=== PATIENT | female | born 1960 | race Caucasian/White ===

== ENCOUNTER → 2017-11-15 | Outpatient (CLI) | payer OTHER ==
[~2017-11-15] MED LIST: ATORVASTATIN PO; HYDROCODON-ACE1 EAC9 PO; LISINOPRIL PO; METOPROLOL TAR100 MG PO; NAPROXEN PO; ROPINIROLE HCL0.5 MG PO; TIZANIDINE HCL4 M1 PO
--- NOTE | 2017-11-15 14:19 | Diagnostic Imaging Report ---
PROCEDURE:X-RAY ABDOMEN - KUB COMPARISON:None. INDICATIONS:RENAL STONE FINDINGS: There is a non-obstructed bowel-gas pattern. There are no calcifications projected over the renal shadows, expected course of the ureters or bladder. There are no acute osseous abnormalities. Catheter projects over the lower lumbar spine and right mid abdomen. Phleboliths are present in the pelvis. The lung bases are clear. CONCLUSION: No acute radiographic abnormality. Dictated by: Fawad Subramanian M.D. on 11/15/2017 at 14:27 Electronically approved by: Fawad Subramanian M.D. on 11/15/2017 at 14:27
== END ==
LOC: RAD 13:28
PROVIDERS: ATTEND Urology
DX: N20.0 Calculus of kidney (principal)
CPT/HCPCS: 74000

== ENCOUNTER 2019-06-20 14:12 | Emergency (ER) | payer OTHER ==
[~2019-06-20] VITALS: Ht 167.6 cm; Wt 68.6 kg
--- OUTSIDE RECORDS SUMMARY | 2019-06-20 14:15 | XMS REPORT | Clinical Summary ---
Author Author [facility] Organization [facility] Address Unknown Phone Unavailable Care Team Providers Care Postie Name Role Phone Syd Pritchett MD PCP Allergies No Known Allergies Medications End Date Status Medication Sig Dispensed Refills Start Date Active rOPINIRole (REQUIP) 5 MG Take 5 mg by 0 tablet mouth 2 (two) times a day. Active gabapentin (NEURONTIN) Take 300 mg 0 300 mg capsule by mouth 3 (three) times a day. Active cyanocobalamin 1,000 Inject 1,000 0 mcg/mL injection mcg into the shoulder, thigh, or buttocks every 30 (thirty) days. 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 Spinal headache 04/16/2018 Back pain 04/05/2018 Lumbar pain 01/26/2018 Encounters Care Team Description Date Type Specialty Yoel Skaggs MD Acute right-sided low back pain with bilateral sciatica 09/24/2018 Hospital Radiology Encounter Syd Pritchett MD Laboratory procedure 09/24/2018 Hospital Radiology Encounter Horace Saravia MD Kidney stones 09/24/2018 Hospital Radiology Encounter Syd Pritchett MD Laboratory procedure (Primary Dx) 09/24/2018 Transcribe Access Orders Horace Saravia MD Kidney stones (Primary Dx) 09/24/2018 Transcribe Access Orders Yoel Skaggs MD Acute right-sided low back pain with bilateral sciatica (Primary Dx) 09/20/2018 Transcribe Neurosurgery Orders after 06/19/2018 Family History Medical History Relation Name Comments SIDS Brother Relation Name Status Comments Brother Father Mother Social History Date Tobacco Use Types Packs/Day Years Used Never Smoker Smokeless Tobacco: Never Used Alcohol Use Drinks/Week oz/Week Comments Yes occasssionally Sex Assigned at Date Recorded Not on file Industry Job Start Date Occupation Not on file Not on file Not on file Travel End Travel History Travel Start No recent travel history available. Last Filed Vital Signs Time Taken Vital Sign Reading - Blood Pressure - - Pulse - - Temperature - - Respiratory Rate - - Oxygen Saturation - - Inhaled Oxygen - Concentration 09/24/2018 6:37 PM [employer] Weight 76.7 kg (169 lb) 09/24/2018 6:37 PM [employer] Height 170.2 cm (5' 7") 09/24/2018 6:37 PM [employer] Body Mass Index 26.47 Plan of Treatment Health Maintenance Due Date Last Done Comments BREAST CANCER SCREENING 2012 COLONOSCOPY SCREENING 2012 SHINGLES VACCINES (#1) 2012 INFLUENZA VACCINE 06/06/2019 Implants Device Identifier Shelf Expiration Date Model / Serial / Lot Implanted Type Area Manufactur er 07/06/2019 [id number] / / [id number] System Spine Selnt For Dural Selng Cardiovasc N/A: N/A [employer] Exact 5ml Duraseal - [id number] Implanted: 04/26/2018 (Quantity not Implants E NEURO on file) Procedures Comments Procedure Name Priority Date/Time Associated Diagnosis MRI LUMBAR SPINE W WO Routine 09/24/2018 Acute right-sided low CONTRAST 7:06 PM [employer] back pain with bilateral sciatica XR CHEST 2 VW Routine 09/24/2018 Laboratory procedure 6:14 PM [employer] XR KUB KIDNEY URETER Routine 09/24/2018 Kidney stones BLADDER 6:13 PM [employer] after 06/19/2018 Results * MRI Lumbar Spine W Wo Contrast (09/24/2018 7:06 PM [employer]) Specimen Narrative Performed At [facility] EXAMINATION: MRI LUMBAR SPINE W WO CONTRAST CLINICAL HISTORY: M54.42 Lumbago with sciaticaleft side, M54.41 Lumbago with sciaticaright side, Acute right-sided low back pain COMPARISON:Lumbar myelogram 04/26/2018. TECHNIQUE: Multiplanar multisequence nonenhanced and contrast enhanced MRI examination was performed of the lumbar spine. FINDINGS: There are 5 non-rib bearing lumbar type vertebrae, the lowest labeled L5 in this report as identified by the lumbosacral angle and iliolumbar ligaments. There are postsurgical changes compatible with decompressive laminectomies L2-L3. The alignment is within normal limits. No subluxation. There is significant wedge like Modic type I marrow edema pattern degenerative changes with associated enhancement involving the adjacent endplates of the anterior L5-S1 intervertebral disc and T11-T12 intervertebral disc. Vertebral body heights are preserved. No paraspinal collections identified. Conus medullaris terminates appropriately at the L1 level. No abnormal T2 hyperintense intramedullary signal or enhancement identified. The cauda equina nerve roots are symmetric and normal in appearance. No abnormal thickening, clumping or enhancement identified. Evaluation of the visualized soft tissues demonstrates no mass, adenopathy or aneurysm. No hydronephrosis. Axial images through the disc spaces demonstrate the following: L1-L2: No significant posterior disc disease, spinal canal, subarticular zone, or neural foraminal stenosis. L2-L3: Spinal canal is decompressed. No significant subarticular zone, or neural foraminal stenosis. L3-L4: No significant posterior disc disease, spinal canal, subarticular zone, or neural foraminal stenosis. L4-L5: No significant posterior disc disease, spinal canal, subarticular zone, or neural foraminal stenosis. L5-S1: Complete intervertebral disc height loss with large anterior disc extrusion on background circumferential disc bulge, image 6 of series 8. There is marked right neural foraminal stenosis with contact of the exiting L5 nerve root on the right, image 3 of series 2. There is mild to moderate left neural foraminal narrowing as well. Evaluation of other visualized levels demonstrates no significant posterior disc disease, spinal canal, subarticular zone, or neural foraminal stenosis. IMPRESSION: 1.Marked right and mild to moderate left neural foraminal stenosis at L5-S1 secondary to intervertebral disc height loss and bulging disc material as detailed above. 2.Postsurgical changes compatible with decompressive laminectomy at L2-L3. No residual spinal canal or neural foraminal stenosis. [facility]-[id number] Procedure Note [facility], Radiology Results - 09/24/2018 8:08 PM [employer] EXAMINATION: MRI LUMBAR SPINE W WO CONTRAST CLINICAL HISTORY: M54.42 Lumbago with sciatica left side, M54.41 Lumbago with sciatica right side, Acute right-sided low back pain COMPARISON: Lumbar myelogram 04/26/2018. TECHNIQUE: Multiplanar multisequence nonenhanced and contrast enhanced MRI examination was performed of the lumbar spine. FINDINGS: There are 5 non-rib bearing lumbar type vertebrae, the lowest labeled L5 in this report as identified by the lumbosacral angle and iliolumbar ligaments. There are postsurgical changes compatible with decompressive laminectomies L2-L3. The alignment is within normal limits. No subluxation. There is significant wedge like Modic type I marrow edema pattern degenerative changes with associated enhancement involving the adjacent endplates of the anterior L5-S1 intervertebral disc and T11-T12 intervertebral disc. Vertebral body heights are preserved. No paraspinal collections identified. Conus medullaris terminates appropriately at the L1 level. No abnormal T2 hyperintense intramedullary signal or enhancement identified. The cauda equina nerve roots are symmetric and normal in appearance. No abnormal thickening, clumping or enhancement identified. Evaluation of the visualized soft tissues demonstrates no mass, adenopathy or aneurysm. No hydronephrosis. Axial images through the disc spaces demonstrate the following: L1-L2: No significant posterior disc disease, spinal canal, subarticular zone, or neural foraminal stenosis. L2-L3: Spinal canal is decompressed. No significant subarticular zone, or neural foraminal stenosis. L3-L4: No significant posterior disc disease, spinal canal, subarticular zone, or neural foraminal stenosis. L4-L5: No significant posterior disc disease, spinal canal, subarticular zone, or neural foraminal stenosis. L5-S1: Complete intervertebral disc height loss with large anterior disc extrusion on background circumferential disc bulge, image 6 of series 8. There is marked right neural foraminal stenosis with contact of the exiting L5 nerve root on the right, image 3 of series 2. There is mild to moderate left neural foraminal narrowing as well. Evaluation of other visualized levels demonstrates no significant posterior disc disease, spinal canal, subarticular zone, or neural foraminal stenosis. IMPRESSION: 1. Marked right and mild to moderate left neural foraminal stenosis at L5-S1 secondary to intervertebral disc height loss and bulging disc material as detailed above. 2. Postsurgical changes compatible with decompressive laminectomy at L2-L3. No residual spinal canal or neural foraminal stenosis. [facility]-[id number] [facility] Organization Address City/State/Zipcode Phone Number [facility] [address] [place] [address] * XR Chest 2 Vw (09/24/2018 6:14 PM [employer]) Specimen Narrative Performed At EXAMINATION:XR CHEST 2 VW [facility] CLINICAL HISTORY:Z01.89 Encounter for other specified special examinations, Z COMPARISON:March 29, 2018 IMPRESSION: 1. The heart and pulmonary vasculature are within normal limits. 2. No infiltrate or effusion is demonstrated. 3. There is no acute osseous pathology. CONCLUSION: NO RADIOGRAPHIC EVIDENCE OF ACUTE CARDIOPULMONARY ABNORMALITY. [place] [facility]-[id number] Procedure Note Interface, Radiology Results Incoming - 09/24/2018 6:22 PM [employer] EXAMINATION: XR CHEST 2 VW CLINICAL HISTORY: Z01.89 Encounter for other specified special examinations, Z COMPARISON: March 29, 2018 IMPRESSION: 1. The heart and pulmonary vasculature are within normal limits. 2. No infiltrate or effusion is demonstrated. 3. There is no acute osseous pathology. CONCLUSION: NO RADIOGRAPHIC EVIDENCE OF ACUTE CARDIOPULMONARY ABNORMALITY. [place] [facility]-[id number] Performing Organization Address City/State/Zipcode Phone Number [facility] [address] [place] [address] * XR Kub Kidney Ureter Bladder (09/24/2018 6:13 PM [employer]) Specimen Narrative Performed At EXAMINATION:XR KUB KIDNEY URETER BLADDER [facility] CLINICAL HISTORY:N20.0 Calculus of kidney, N20.0 COMPARISON:None. IMPRESSION: 1. No suspicious calcification overlies the renal shadows or expected course of the ureters. Calcifications within the pelvis are similar to the December 01 CT scan and were shown to represent phleboliths. 2. There is no evidence of bowel obstruction or perforation. 3. Fragments of a TIMBER REPAIRER shunt are grossly stable. The visualized lung bases are clear. [facility]-[id number] Procedure Note Interface, Radiology Results Incoming - 09/24/2018 6:37 PM [employer] EXAMINATION: XR KUB KIDNEY URETER BLADDER CLINICAL HISTORY: N20.0 Calculus of kidney, N20.0 COMPARISON: None. IMPRESSION: 1. No suspicious calcification overlies the renal shadows or expected course of the ureters. Calcifications within the pelvis are similar to the December 01 CT scan and were shown to represent phleboliths. 2. There is no evidence of bowel obstruction or perforation. 3. Fragments of a TIMBER REPAIRER shunt are grossly stable. The visualized lung bases are clear. [facility]-[id number] Performing Organization Address City/State/Zipcode Phone Number [facility] [address] [place] [address] after 06/19/2018 Insurance Type Payer Benefit Subscriber ID Effective Phone Address Plan / Dates Group PPO [facility] UNITED xxxxxxxxxxxx 2012-P INTEGRATED resent SVS HMO/PPO [facility] GEHA/UNITE xxxxxxxxxxxx 2012-P DHEALTHCAR resent E Advance Directives Patient has advance care planning documents on file. For more information, ruth hamilton contact: David Aiken [address] [place] [address]
--- OUTSIDE RECORDS SUMMARY | 2019-06-20 14:16 | XMS REPORT | Summary of Care ---
Author Author [facility] Organization [facility] Address Unknown Phone Unavailable Encounter RAOUL Hough(QIAN) [id number] Date(s): 10/31/17 - 11/01/17 [facility] [address] [employer] provided by [facility] [employer] [facility] [place] [address]- Discharge Diagnosis: Acute constipation Discharge Disposition: Home or Self Care Attending Physician: Deisy Kumar MD Vital Signs 1 2 3 Most recent to oldest [Reference Range]: 98 DegF (11/01/17 4:40 AM) 97.3 DegF (10/31/17 11:21 PM) 97.8 DegF (10/31/17 6:23 PM) Temperature Oral [96.4-99.1 DegF] 128/79 mmHg (11/01/17 4:40 AM) 140/86 mmHg (10/31/17 11:21 PM) 137/85 mmHg (10/31/17 6:23 PM) Blood Pressure [90-140/60-90 mmHg] 20 BRMIN (11/01/17 4:40 AM) 20 BRMIN (10/31/17 11:21 PM) 18 BRMIN (10/31/17 6:23 PM) Respiratory Rate [14-20 BRMIN] 70 bpm (10/31/17 11:21 PM) 56 bpm *LOW* (10/31/17 6:23 PM) Peripheral Pulse Rate [60-100 bpm] 90.909 kg (10/31/17 6:23 PM) Weight Problem List Condition Effective Dates Status Health Status Informant Hypertension(Confirm Resolved ed) Allergies, Adverse Reactions, Alerts Substance Reaction Severity Status NKDA Active Medications docusate sodium 50 mg oral capsule 50 mg=1 cap, PO, BID, PRN Constipation, # 180 cap, 0 Refill(s) Start Date: 11/01/17 Status: Ordered docusate-senna 50 mg-8.6 mg oral tablet 2 tab, Route: PO, Drug Form: TAB, Dosing Weight 90.909, kg, Bedtime, Start date: 11/01/17 21:00:00 DIRECTOR OF ONLINE EDUCATION, Duration: 30 day, Stop date: 11/30/17 21:00:00 DIRECTOR OF ONLINE EDUCATION Notes: (Same as Sensuzan-S) Equiv. to Katarzyna-Colace. Start Date: 11/01/17 Stop Date: 11/01/17 Status: Canceled docusate-senna 50 mg-8.6 mg oral tablet 2 tab, Route: PO, Drug Form: TAB, Dosing Weight 90.909, kg, ONCE, Start date: 4:03:00 DIRECTOR OF ONLINE EDUCATION, Stop date: 11/01/17 4:03:00 DIRECTOR OF ONLINE EDUCATION Notes: (Same as Sensuzan-S) Equiv. to Katarzyna-Colace. Start Date: 11/01/17 Stop Date: 11/01/17 Status: Completed Fleet Enema 133 mL, Route: PA, Drug Form: SOLN, Dosing Weight 90.909, kg, ONCE, Start date: 11/01/17 4:16:00 DIRECTOR OF ONLINE EDUCATION, Stop date: 11/01/17 4:16:00 DIRECTOR OF ONLINE EDUCATION, For Constipation > 12 years, Pediatric Dosing Start Date: 11/01/17 Stop Date: 11/01/17 Status: Completed Keflex 500 mg oral capsule 500 mg=1 cap, PO, QID, X 7 day, # 28 cap, 0 Refill(s) Start Date: 11/01/17 Stop Date: 11/08/17 Status: Ordered MiraLax oral powder for reconstitution 17 gm, PO, Daily, X 31 day, # 527 gm, 0 Refill(s) Start Date: 11/01/17 Stop Date: 12/02/17 Status: Ordered Constantine 10/325 oral tablet 1 tab, Route: PO, Drug Form: TAB, Dosing Weight 90.909, kg, ONCE, STAT, Start da te: 11/01/17 5:08:00 DIRECTOR OF ONLINE EDUCATION, Stop date: 11/01/17 5:08:00 DIRECTOR OF ONLINE EDUCATION Notes: Do not exceed 4gm/day of acetaminophen. (Same as: Constantine 325/10) Start Date: 11/01/17 Stop Date: 11/01/17 Status: Ordered Constantine 10/325 oral tablet 1 tab, Route: PO, Drug Form: TAB, Dosing Weight 90.909, kg, ONCE, STAT, Start da te: 11/01/17 3:57:00 DIRECTOR OF ONLINE EDUCATION, Stop date: 11/01/17 3:57:00 DIRECTOR OF ONLINE EDUCATION Notes: Do not exceed 4gm/day of acetaminophen. (Same as: Constantine 325/10) Start Date: 11/01/17 Stop Date: 11/01/17 Status: Completed senna 25 mg oral tablet 50 mg=2 tab, PO, BID, PRN for constipation, X 25 day, # 100 tab, 0 Refill(s) Start Date: 11/01/17 Stop Date: 11/26/17 Status: Ordered Zofran ODT 4 mg, 1 tab, Route: PO, Drug form: TABDIS, ONCE, Dosing Weight 90.909, kg, Prior ity: STAT, Start date: 11/01/17 5:08:00 DIRECTOR OF ONLINE EDUCATION, Stop date: 11/01/17 5:08:00 DIRECTOR OF ONLINE EDUCATION Notes: (Same as: Zofran ODT) Start Date: 11/01/17 Stop Date: 11/01/17 Status: Ordered Zofran ODT 4 mg oral tablet, disintegrating 4 mg=1 tab, PO, BID, PRN Nausea and Vomiting, Dissolve tab under tongue, # 10 ta b, 0 Refill(s) Start Date: 11/01/17 Stop Date: 11/06/17 Status: Ordered Results ELECTROLYTES Most recent to 1 oldest [Reference Range]: Sodium Lvl [135-145 143 mEq/L mEq/L] (10/31/17 11:16 PM) Potassium Lvl 3.8 mEq/L [3.5-5.1 mEq/L] (10/31/17 11:16 PM) Chloride Lvl [95-109 105 mEq/L mEq/L] (10/31/17 11:16 PM) CO2 [24-32 mEq/L] 31 mEq/L (10/31/17 11:16 PM) AGAP [10.0-20.0 10.8 mEq/L mEq/L] (10/31/17 11:16 PM) CHEM PANEL Most recent to 1 oldest [Reference Range]: Creatinine Lvl 0.89 mg/dL [0.50-1.40 mg/dL] (10/31/17 11:16 PM) eGFR 73 mL/min/1.73m2 1 *NA* (10/31/17 11:16 PM) BUN [7-22 mg/dL] 18 mg/dL (10/31/17 11:16 PM) B/C Ratio [6-25] 20 (10/31/17 11:16 PM) Glucose Lvl [70-99 97 mg/dL mg/dL] (10/31/17 11:16 PM) Total Protein 7.7 g/dL [6.4-8.4 g/dL] (10/31/17 11:16 PM) Albumin Lvl [3.5-5.0 3.8 g/dL g/dL] (10/31/17 11:16 PM) Globulin [2.7-4.2 3.9 g/dL g/dL] (10/31/17 11:16 PM) A/G Ratio [0.7-1.6] 1.0 (10/31/17 11:16 PM) Calcium Lvl 9.0 mg/dL [8.5-10.5 mg/dL] (10/31/17 11:16 PM) ALT [0-65 unit/L] 27 unit/L (10/31/17 11:16 PM) AST [0-37 unit/L] 19 unit/L (10/31/17 11:16 PM) Alk Phos [39-136 91 unit/L unit/L] (10/31/17 11:16 PM) Bili Total [0.2-1.3 0.5 mg/dL mg/dL] (10/31/17 11:16 PM) Lipase Lvl [73-393 167 unit/L unit/L] (10/31/17 11:16 PM) 1Result Comment: The eGFR is calculated using the CKD-EPI formula. In most young, healthy individuals the eGFR will be >90 mL/min/1.73m2. The eGFR declines with age. An eGFR of 60-89 may be normal in some populations, particularly the elderly, for whom the CKD-EPI formula has not been extensively validated. Use of the eGFR is not recommended in the following populations: Individuals with unstable creatinine concentrations, including patients and those with serious co-morbid conditions. Patients with extremes in muscle mass or diet. The data above are obtained from the National Kidney Disease Education Program ( NKDEP) which additionally recommends that when the eGFR is used in patients with extremes of body mass index for purposes of drug dosing, the eGFR should be mul tiplied by the estimated BMI. URINE AND STOOL Most recent to 1 oldest [Reference Range]: UA Turbidity [Clear] Slight Cloudy (10/31/17 7:35 PM) UA Color [Yellow] Yellow *NA* (10/31/17 7:35 PM) UA pH [5.0-8.0] 6.0 (10/31/17 7:35 PM) UA Spec Grav 1.025 [<=1.030] (10/31/17 7:35 PM) UA Glucose Negative [Negative] (10/31/17 7:35 PM) UA Blood [Negative] Negative (10/31/17 7:35 PM) UA Ketones Negative [Negative] *NA* (10/31/17 7:35 PM) UA Protein Negative [Negative] (10/31/17 7:35 PM) UA Urobilinogen 0.2 EU/dL [0.1-1.0 EU/dL] (10/31/17 7:35 PM) UA Bili [Negative] Negative *NA* (10/31/17 7:35 PM) UA Leuk Est Small [Negative] *ABN* (10/31/17 7:35 PM) UA Nitrite Negative [Negative] (10/31/17 7:35 PM) UA WBC [None Seen 6-10 /HPF /HPF] *ABN* (10/31/17 7:35 PM) UA RBC [0-2 /HPF] 0-2 /HPF (10/31/17 7:35 PM) UA Bacteria [None None Seen Seen] (10/31/17 7:35 PM) UA Sq Epi [Few /LPF] Few /LPF (10/31/17 7:35 PM) UA Mucus [None Seen Moderate /LPF /LPF] *ABN* (10/31/17 7:35 PM) Micro? Performed (10/31/17 7:35 PM) HEMATOLOGY Most recent to 1 oldest [Reference Range]: WBC [3.7-10.4 K/CMM] 7.1 K/CMM (10/31/17 11:16 PM) RBC [4.20-5.40 4.42 M/CMM M/CMM] (10/31/17 11:16 PM) Hgb [12.0-16.0 g/dL] 13.7 g/dL (10/31/17 11:16 PM) Hct [36.0-48.0 %] 40.6 % (10/31/17:16 PM) MCV [80.0-98.0 fL] 91.9 fL (10/31/17 11:16 PM) MCH [27.0-31.0 pg] 31.0 pg (10/31/17:16 PM) MCHC [32.0-36.0 33.7 g/dL g/dL] (10/31/17 11:16 PM) RDW [11.5-14.5 %] 14.0 % (10/31/17 11:16 PM) Platelet [133-450 177 K/CMM K/CMM] (10/31/17:16 PM) MPV [7.4-10.4 fL] 10.4 fL (10/31/17 11:16 PM) Segs [45.0-75.0 %] 35.8 % *LOW* (10/31/17:16 PM) Lymphocytes 55.9 % [20.0-40.0 %] *HI* (10/31/17 11:16 PM) Monocytes [2.0-12.0 5.9 % %] (10/31/17 11:16 PM) Eosinophils [0.0-4.0 1.9 % %] (10/31/17 11:16 PM) Basophils [0.0-1.0 0.5 % %] (10/31/17 11:16 PM) Segs-Bands # 2.5 K/CMM [1.5-8.1 K/CMM] (10/31/17 11:16 PM) Lymphocytes # 3.9 K/CMM [1.0-5.5 K/CMM] (10/31/17 11:16 PM) Monocytes # [0.0-0.8 0.4 K/CMM K/CMM] (10/31/17 11:16 PM) Eosinophils # 0.1 K/CMM [0.0-0.5 K/CMM] (10/31/17 11:16 PM) Immunizations No data available for this section Procedures Procedure Date Related Diagnosis Body Site Bypass of stomach Carpal tunnel release Hysterectomy Removal - procedure1 Shunt construction2 1of rib 2fpor pseudocerebri Social History Social History Type Response Smoking Status Never smoker; Concerns about tobacco use in household: No; Exposure to Tobacco Smoke None; Cigarette Smoking Last 365 Days No; Reg Smoking Cessation Counseling No Assessment and Plan No data available for this section
--- OUTSIDE RECORDS SUMMARY | 2019-06-20 14:16 | XMS REPORT | Summary of Care ---
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) - Essential (primary) hypertension (Final) - Discharge Disposition: Home or Self Care Attending Physician: Eduardo Morfin MD Referring Physician: Eduardo Morfin MD Vital Signs 1 2 3 Most recent to oldest [Reference Range]: 170.18 cm (11/01/18 9:38 AM) Height 137/70 mmHg (11/02/18 2:29 PM) 119/58 mmHg (11/02/18 2:15 PM) 129/74 mmHg (11/02/18 2:00 PM) Blood Pressure [90-140/60-90 mmHg] 15 BRMIN (11/02/18 2:29 PM) 14 BRMIN (11/02/18 2:15 PM) 14 BRMIN (11/02/18 2:00 PM) Respiratory Rate [14-20 BRMIN] 48 bpm *LOW* (11/02/18 9:18 AM) Peripheral Pulse Rate [60-100 bpm] 75.455 kg (11/01/18 9:38 AM) Weight 26.05 m2 (11/01/18 9:38 AM) Body Mass Index Problem List Condition Effective Dates Status Health Status Informant CSF leak(Confirmed) Resolved Depression(Confirmed Active ) Hypertension(Confirm Active ed) Allergies, Adverse Reactions, Alerts No Known Medication Allergies Medications acetaminophen (ANES) Route: IV, Drug form: INJ, ONCE, Stop date: 11/02/18 12:36:00 PERSONAL FINANCE INSTRUCTOR Start Date: 11/02/18 Stop Date: 11/02/18 Status: Completed ANES flumazenil 0.2 mg, 2 mL, Route: IVP, Drug form: INJ, PRN, Dosing Weight 75.455, kg, PRN Kenn zodiazepine Reversal, Initial dose, Start date: 11/02/18 12:15:00 PERSONAL FINANCE INSTRUCTOR, Duration: 30 day, Stop date: 12/02/18 12:14:00 PERSONAL FINANCE INSTRUCTOR Notes: (Same as: Romazicon) Start Date: 11/02/18 Stop Date: 11/03/18 Status: Discontinued ANES hydrALAZINE 10 mg, 0.5 mL, Route: IVP, Drug form: INJ, Q20Min, Dosing Weight 75.455, kg, PRN Elevated BP, Start date: 11/02/18 12:15:00 PERSONAL FINANCE INSTRUCTOR, Duration: 2 doses or times, Stop date: Limited # of times Notes: (Same as: Apresoline)Push over 5 minutes Start Date: 11/02/18 Stop Date: 11/03/18 Status: Discontinued ANES HYDROmorphone 0.5 mg, 0.25 mL, Route: IVP, Drug form: INJ, Q5Min, Dosing Weight 75.455, kg, PA N Pain Score 6-10, Start date: 11/02/18 12:15:00 PERSONAL FINANCE INSTRUCTOR, Duration: 4 doses or times , Stop date: Limited # of times Notes: Same as Dilaudid Start Date: 11/02/18 Stop Date: 11/02/18 Status: Completed ANES labetalol 10 mg, 2 mL, Route: IVP, Drug form: INJ, Q5Min, Dosing Weight 75.455, kg, PRN El evated BP, Start date: 11/02/18 12:15:00 PERSONAL FINANCE INSTRUCTOR, Duration: 5 doses or times, Stop d ate: Limited # of times Notes: (Same as: Normodyne, Trandate)Push over 2 minutes Give bolus over 2-3 mi nutes. Start Date: 11/02/18 Stop Date: 11/03/18 Status: Discontinued ANES morphine Sulfate 2 mg, 0.5 mL, Route: IVP, Drug form: SOLN, Q5Min, Dosing Weight 75.455, kg, PRN Pain Score 1-5, Start date: 11/02/18 12:15:00 PERSONAL FINANCE INSTRUCTOR, Duration: 5 doses or times, S top date: 11/03/18 0:00:00 PERSONAL FINANCE INSTRUCTOR Notes: (Same as:MORPhine Sulfate) Start Date: 11/02/18 Stop Date: 11/03/18 Status: Completed ANES naloxone 0.4 mg, 1 mL, Route: IVP, Drug form: INJ, Q2MIN, Dosing Weight 75.455, kg, PRN N arcotic Reversal, Start date: 11/02/18 12:15:00 PERSONAL FINANCE INSTRUCTOR, Duration: 8 doses or times, Stop date: 11/03/18 0:00:00 PERSONAL FINANCE INSTRUCTOR Notes: Same as Narcan Start Date: 11/02/18 Stop Date: 11/03/18 Status: Completed ANES ondansetron 4 mg, Route: IVP, ONCE, Dosing Weight 75.455, kg, PRN Nausea & Vomiting, Start date: 11/02/18 12:15:00 PERSONAL FINANCE INSTRUCTOR Start Date: 11/02/18 Stop Date: 11/02/18 Status: Completed ANES oxyCODONE 5 mg, 1 tab, Route: PO, Drug form: TAB, Q4H, Dosing Weight 75.455, kg, PRN Pain Score 4-6, Start date: 11/02/18 12:15:00 PERSONAL FINANCE INSTRUCTOR, Duration: 1 day, Stop date: 12:14:00 PERSONAL FINANCE INSTRUCTOR Notes: (Same as: Roxicodone) Start Date: 11/02/18 Stop Date: 11/03/18 Status: Discontinued ANES oxyCODONE 10 mg, 2 tab, Route: PO, Drug form: TAB, Q4H, Dosing Weight 75.455, kg, PRN Pain Score 7-10, Start date: 11/02/18 12:15:00 PERSONAL FINANCE INSTRUCTOR, Duration: 1 day, Stop date: 10/07 07/24 12:14:00 PERSONAL FINANCE INSTRUCTOR Notes: (Same as: Roxicodone) Start Date: 11/02/18 Stop Date: 11/03/18 Status: Discontinued ANES promethazine 6.25 mg, 0.25 mL, Route: IVPB, Drug form: INJ, ONCE, Dosing Weight 75.455, kg, P RN Nausea & Vomiting, Start date: 11/02/18 12:15:00 PERSONAL FINANCE INSTRUCTOR Notes: Do not give IV push. (Same as: Phenergan) Start Date: 11/02/18 Stop Date: 11/03/18 Status: Discontinued Belbuca 300 mcg buccal film 300 microgram=1 ea, BUC, Q12H, 0 Refill(s) Start Date: 11/01/18 Status: Ordered ceFAZolin (ANES) Route: IV, Drug form: INJ, ONCE, Stop date: 11/02/18 12:46:00 PERSONAL FINANCE INSTRUCTOR Start Date: 11/02/18 Stop Date: 11/02/18 Status: Completed cefOXitin (ANES) Route: IV, Drug form: INJ, ONCE, Stop date: 11/02/18 12:26:00 PERSONAL FINANCE INSTRUCTOR Start Date: 11/02/18 Stop Date: 11/02/18 Status: Completed dexamethasone (ANES) Route: IV, Drug form: INJ, ONCE, Stop date: 11/02/18 12:20:00 PERSONAL FINANCE INSTRUCTOR Start Date: 11/02/18 Stop Date: 11/02/18 Status: Completed dexmedetomidine (ANES) 200 microgram Route: IV, Drug form: INJ, Start date: 11/02/18 12:08:00 PERSONAL FINANCE INSTRUCTOR, Stop date: 8 13:08:00 PERSONAL FINANCE INSTRUCTOR Start Date: 11/02/18 Stop Date: 11/02/18 Status: Completed famotidine (ANES) Route: IV, Drug form: INJ, ONCE, Stop date: 11/02/18 12:20:00 PERSONAL FINANCE INSTRUCTOR Start Date: 11/02/18 Stop Date: 11/02/18 Status: Completed fentaNYL (ANES) Route: IV, Drug form: INJ, ONCE, Stop date: 11/02/18 12:20:00 PERSONAL FINANCE INSTRUCTOR Start Date: 11/02/18 Stop Date: 11/02/18 Status: Completed gabapentin 400 mg oral capsule 400 mg=1 cap, PO, Q8H, 0 Refill(s) Start Date: 11/01/18 Status: Ordered glycopyrrolate (ANES) Route: IV, Drug form: INJ, ONCE, Stop date: 11/02/18 12:51:00 PERSONAL FINANCE INSTRUCTOR Start Date: 11/02/18 Stop Date: 11/02/18 Status: Completed heparin 5,000 unit, 1 mL, Route: SUB-Q, Drug form: INJ, ONCE, Start date: 11/02/18 10:05 :00 PERSONAL FINANCE INSTRUCTOR, Stop date: 11/02/18 10:05:00 PERSONAL FINANCE INSTRUCTOR Notes: porcine heparin Start Date: 11/02/18 Stop Date: 11/02/18 Status: Completed ketAMINE (ANES) Route: IV, Drug form: INJ, ONCE, Stop date: 11/02/18 12:31:00 PERSONAL FINANCE INSTRUCTOR Start Date: 11/02/18 Stop Date: 11/02/18 Status: Completed ketOROLAC (ANES) IV, ONCE Start Date: 11/02/18 Stop Date: 11/02/18 Status: Completed Lactated Ringers Injection IV (ANES) 1000 mL Route: IV, Total Volume: 1,000, Start date: 11/02/18 11:23:00 PERSONAL FINANCE INSTRUCTOR, Stop date: 12:23:00 PERSONAL FINANCE INSTRUCTOR Start Date: 11/02/18 Stop Date: 11/02/18 Status: Completed lidocaine (ANES) Route: IV, Drug form: INJ, ONCE, Stop date: 11/02/18 12:20:00 PERSONAL FINANCE INSTRUCTOR Start Date: 11/02/18 Stop Date: 11/02/18 Status: Completed magnesium sulfate (ANES) Route: IV, Drug form: INJ, ONCE, Stop date: 11/02/18 12:31:00 PERSONAL FINANCE INSTRUCTOR Start Date: 11/02/18 Stop Date: 11/02/18 Status: Completed metoclopramide (ANES) Route: IV, Drug form: INJ, ONCE, Stop date: 11/02/18 12:20:00 PERSONAL FINANCE INSTRUCTOR Start Date: 11/02/18 Stop Date: 11/02/18 Status: Completed metoprolol tartrate 50 mg oral tablet 50 mg=1 tab, PO, Bedtime, 0 Refill(s) Start Date: 11/01/18 Status: Ordered midazolam (ANES) Route: IV, Drug form: SOLN, ONCE, Stop date: 11/02/18 12:20:00 PERSONAL FINANCE INSTRUCTOR Start Date: 11/02/18 Stop Date: 11/02/18 Status: Completed neostigmine (ANES) Route: IV, Drug form: INJ, ONCE, Stop date: 11/02/18 12:51:00 PERSONAL FINANCE INSTRUCTOR Start Date: 11/02/18 Stop Date: 11/02/18 Status: Completed ondansetron (ANES) Route: IV, Drug form: INJ, ONCE, Stop date: 11/02/18 12:46:00 PERSONAL FINANCE INSTRUCTOR Start Date: 11/02/18 Stop Date: 11/02/18 Status: Completed propofol (ANES) Route: IV, Drug form: INJ, ONCE, Stop date: 11/02/18 12:20:00 PERSONAL FINANCE INSTRUCTOR Start Date: 11/02/18 Stop Date: 11/02/18 Status: Completed remove patch 1 patch, Route: TOP, Drug form: ERFILM, ONCE, Start date: 11/05/18 10:01:00 PERSONAL FINANCE INSTRUCTOR, Stop date: 11/05/18 10:01:00 PERSONAL FINANCE INSTRUCTOR Notes: Remove old patch before application of new patch. Start Date: 11/05/18 Stop Date: 11/03/18 Status: Canceled rocuronium (ANES) Route: IV, Drug form: INJ, ONCE, Stop date: 11/02/18 12:20:00 PERSONAL FINANCE INSTRUCTOR Start Date: 11/02/18 Stop Date: 11/02/18 Status: Completed rOPINIRole 5 mg, 5 tab, Route: PO, Drug form: TAB, ONCE, Dosing Weight 75.455, kg, Start da te: 11/02/18 13:16:00 PERSONAL FINANCE INSTRUCTOR, Stop date: 11/02/18 13:16:00 PERSONAL FINANCE INSTRUCTOR Notes: (Same as: Requip) Start Date: 11/02/18 Stop Date: 11/13/18 Status: Discontinued scopolamine 1 patch, Route: TOP, Drug form: ERFILM, ONCE, Start date: 11/02/18 10:00:00 PERSONAL FINANCE INSTRUCTOR, Stop date: 11/02/18 10:00:00 PERSONAL FINANCE INSTRUCTOR Notes: Change patch every 72 hours (Same as: Transderm-Scop) Start Date: 11/02/18 Stop Date: 11/02/18 Status: Completed Sodium Chloride 0.9% (Bolus) IV 500 mL, 1500 ml/hr, Infuse Over: 20 minutes, Route: IV, 500, Drug form: INJ, ONC E, Dosing Weight 75.455 kg, Start date: 11/02/18 12:15:00 PERSONAL FINANCE INSTRUCTOR, Stop date: 12:15:00 PERSONAL FINANCE INSTRUCTOR Start Date: 11/02/18 Stop Date: 11/13/18 Status: Discontinued succinylcholine (ANES) Route: IV, Drug form: INJ, ONCE, Stop date: 11/02/18 12:20:00 PERSONAL FINANCE INSTRUCTOR Start Date: 11/02/18 Stop Date: 11/02/18 Status: Completed tizanidine 4 mg oral tablet 8 mg=2 tab, PO, Q8H, 0 Refill(s) Start Date: 11/01/18 Status: Ordered Vitamin B12 INJ, 0 Refill(s) Start Date: 11/01/18 Status: Ordered Results Most recent to 1 oldest [Reference Range]: Neutrophils # 3.4 K/CMM [1.5-8.1 K/CMM] (11/02/18 9:02 AM) Lymphocytes # 1.9 K/CMM [1.0-5.5 K/CMM] (11/02/18 9:02 AM) Monocytes # [0.0-0.8 0.4 K/CMM K/CMM] (11/02/18 9:02 AM) Eosinophils # 0.1 K/CMM [0.0-0.5 K/CMM] (11/02/18 9:02 AM) eGFR 79 mL/min/1.73m2 1 *NA* (11/02/18 9:02 AM) ABO/Rh A POS *Unknown* (11/02/18 9:15 AM) A/G Ratio [0.7-1.6] 1.0 (11/02/18 9:02 AM) Antibody Scrn Negative (11/02/18 9:15 AM) Albumin Lvl [3.5-5.0 4.1 g/dL g/dL] (11/02/18 9:02 AM) Alk Phos [39-136 74 unit/L unit/L] (11/02/18 9:02 AM) ALT [0-65 unit/L] 22 unit/L (11/02/18 9:02 AM) AGAP [10.0-20.0 10.6 mEq/L mEq/L] (11/02/18 9:02 AM) AST [0-37 unit/L] 14 unit/L (11/02/18 9:02 AM) B/C Ratio [6-25] 16 (11/02/18 9:02 AM) Basophils [0.0-1.0 0.4 % %] (11/02/18 9:02 AM) BUN [7-22 mg/dL] 13 mg/dL (11/02/18:02 AM) Calcium Lvl 8.8 mg/dL [8.5-10.5 mg/dL] (11/02/18: AM) Chloride Lvl [95-109 104 mEq/L mEq/L] (11/02/18: AM) CO2 [24-32 mEq/L] 29 mEq/L (11/02/18 AM) Creatinine Lvl 0.83 mg/dL [0.50-1.40 mg/dL] (11/02/18: AM) Eosinophils [0.0-4.0 1.3 % %] (11/02/18: AM) Globulin [2.7-4.2 4.0 g/dL g/dL] (11/02/18 AM) Glucose Lvl [70-99 77 mg/dL mg/dL] (11/02/18 AM) Hct [36.0-48.0 %] 41.2 % (11/02/18 AM) Hgb [12.0-16.0 g/dL] 14.0 g/dL (11/02/18: AM) INR [0.85-1.17] 1.03 (11/02/18 AM) Potassium Lvl 3.6 mEq/L [3.5-5.1 mEq/L] (11/02/18: AM) Lymphocytes 32.9 % [20.0-40.0 %] (11/02/18 AM) MCH [27.0-31.0 pg] 31.1 pg *HI* (11/02/18: AM) MCHC [32.0-36.0 33.9 g/dL g/dL] (11/02/18 AM) MCV [80.0-98.0 fL] 91.9 fL (11/02/18 AM) Monocytes [2.0-12.0 6.2 % %] (11/02/18: AM) MPV [7.4-10.4 fL] 9.7 fL (12/28/18 9:02 AM) Sodium Lvl [135-145 140 mEq/L mEq/L] (11/02/18 9:02 AM) Platelet [133-450 196 K/CMM K/CMM] (11/02/18 9:02 AM) Segs [45.0-75.0 %] 59.2 % (11/02/18 9:02 AM) Total Protein 8.1 g/dL [6.4-8.4 g/dL] (11/02/18 9:02 AM) PT [12.0-14.7 13.3 seconds seconds] (11/02/18 9:02 AM) PTT [22.9-35.8 32.4 seconds seconds] (11/02/18 9:02 AM) RBC [4.20-5.40 4.49 M/CMM M/CMM] (11/02/18 9:02 AM) RDW [11.5-14.5 %] 13.8 % (11/02/18 9: AM) Bili Total [0.2-1.3 0.9 mg/dL mg/dL] (11/02/18 9:02 AM) UA Bacteria [None Occasional /HPF Seen /HPF] *NA* (11/02/18 9:02 AM) UA Bili [Negative] Negative *NA* (11/02/18 9:02 AM) UA Blood [Negative] Negative (11/02/18 9:02 AM) UA Color [Yellow] Yellow *NA* (11/02/18 9:02 AM) UA Glucose [Negative Negative mg/dL mg/dL] *NA* (11/02/18 9:02 AM) UA Ketones [Negative Negative mg/dL mg/dL] *NA* (11/02/18 9:02 AM) UA Leuk Est Moderate [Negative] *ABN* (11/02/18 9:02 AM) UA Mucus [None Seen Few /LPF /LPF] *NA* (11/02/18 9:02 AM) UA Nitrite Positive [Negative] *ABN* (11/02/18 9:02 AM) UA pH [5.0-8.0] 6.5 (11/02/18 9:02 AM) UA Protein [Negative Negative mg/dL mg/dL] (11/02/18 9:02 AM) UA RBC [0-2 /HPF] 1 /HPF (11/02/18 9:02 AM) UA Spec Grav 1.021 [<=1.030] (11/02/18 9:02 AM) UA Sq Epi [Few /LPF] Few /LPF *NA* (11/02/18 9:02 AM) UA Turbidity [Clear] Clear (11/02/18 9:02 AM) UA Urobilinogen 2.0 mg/dL [0.1-1.0 mg/dL] *HI* (11/02/18 9:02 AM) UA WBC [0-5 /HPF] 35 /HPF *HI* (11/02/18 9:02 AM) WBC [3.7-10.4 K/CMM] 5.7 K/CMM (11/02/18 9:02 AM) 1Result Comment: The eGFR is calculated using [...] be mul tiplied by the estimated BMI. Immunizations No data available for this section Procedures Procedure Date Related Diagnosis Body Site Status Bypass of stomach1 Completed Carpal tunnel release Completed Hysterectomy Completed Oophorectomy Completed Procedure2 Completed Removal - procedure3 Completed Shunt construction4, 5 Completed 1gastric sleeve 2plantar facis and heel spur 3of rib 4x3 blood patches done 5fpor pseudocerebri Social History Social History Type Response Substance Abuse Use: None. Alcohol Current, Frequency: 1-2 times per month. Smoking Status Never smoker; Exposure to Tobacco Smoke None; Cigarette Smoking Last 365 Days No; Reg Smoking Cessation Counseling No entered on: 11/01/18 Assessment and Plan No data available for this section
--- OUTSIDE RECORDS SUMMARY | 2019-06-20 14:16 | XMS REPORT | Summary of Care ---
Author Author [facility] Organization [facility] Address Unknown Phone Unavailable Encounter RAOUL Hough(QIAN) [id number] Date(s): 09/11/17 - 09/12/17 [facility] [address], [place], [place] [address]- [phone] Discharge Diagnosis: Acute lower urinary tract infection Discharge Diagnosis: Renal colic on right side Discharge Diagnosis: Peritoneal cyst Discharge Disposition: Home or Self Care Attending Physician: Michelle Tsai MD Vital Signs 1 2 3 Most recent to oldest [Reference Range]: 170.18 cm (09/11/17 7:13 PM) Height 96.3 DegF *LOW* (09/12/17 12:46 AM) 97.3 DegF (09/11/17 9:45 PM) 97.2 DegF (09/11/17 7:13 PM) Temperature Oral [96.4-99.1 DegF] 125/67 mmHg (09/12/17 12:46 AM) 134/80 mmHg (09/11/17 9:45 PM) 133/65 mmHg (09/11/17 7:13 PM) Blood Pressure [90-140/60-90 mmHg] 18 BRMIN (09/12/17 12:46 AM) 18 BRMIN (09/11/17 9:45 PM) 18 BRMIN (09/11/17 7:13 PM) Respiratory Rate [14-20 BRMIN] 54 bpm *LOW* (09/12/17 12:46 AM) 51 bpm *LOW* (09/11/17 9:45 PM) 51 bpm *LOW* (09/11/17 7:13 PM) Peripheral Pulse Rate [60-100 bpm] 94.091 kg (09/11/17 7:13 PM) Weight 32.49 m2 (09/11/17 7:13 PM) Body Mass Index Problem List Condition Effective Dates Status Health Status Informant Hypertension(Confirm Resolved ed) Allergies, Adverse Reactions, Alerts Substance Reaction Severity Status NKDA Active Medications Flomax 0.4 mg oral capsule 0.4 mg=1 cap, PO, Daily, # 7 cap, 0 Refill(s) Start Date: 09/11/17 Stop Date: 09/18/17 Status: Ordered Keflex 500 mg, 1 cap, Route: PO, Drug form: CAP, ONCE, Dosing Weight 94.091, kg, Priori ty: STAT, Start date: 09/11/17 22:29:00 MARKETING ASSIST[employer], Stop date: 09/11/17 22:29:00 [employer]ETING ASSIST[employer] Notes: Take on empty stomach. (Same As: Keflex) Start Date: 09/11/17 Stop Date: 09/11/17 Status: Completed Keflex 500 mg oral capsule 500 mg=1 cap, PO, TID, X 10 day, # 30 cap, 0 Refill(s) Start Date: 09/11/17 Stop Date: 09/21/17 Status: Ordered ketOROLAC 30 mg/mL injectable solution 30 mg, 1 mL, Route: IVP, Drug form: INJ, ONCE, Dosing Weight 94.091, kg, Priorit y: STAT, Start date: 09/11/17 22:29:00 MARKETING ASSIST[employer], Stop date: 09/11/17 22:29:00 MARKETING ASSIST[employer] Notes: (Same as:Toradol) IV bolus must be given >15 seconds. Give IM administration slowly and deeply into the muscle.Not for use > 4 days MEDICATION WASTE Product Size: 30 mgProduct Wasted: ___ mg Start Date: 09/11/17 Stop Date: 09/11/17 Status: Completed morphine Sulfate 4 mg, 1 mL, Route: IVP, Drug form: INJ, ONCE, Dosing Weight 94.091, kg, Priority : STAT, Start date: 09/11/17 20:50:00 MARKETING [employer]IST[employer], Stop date: 09/11/17 20:50:00 MARKETING ASSIST[employer] Notes: (Same as:MORPhine Sulfate) Start Date: 09/11/17 Stop Date: 09/11/17 Status: Completed Motrin 800 mg oral tablet 800 mg=1 tab, PO, Q8H, PRN Pain, Take with food, X 7 day, # 21 tab, 0 Refill(s) Start Date: 09/11/17 Stop Date: 09/18/17 Status: Ordered Nisula 5/325 oral tablet 1-2 tab, PO, Q4-6H, PRN Pain, X 5 day, # 20 tab, 0 Refill(s) Start Date: 09/11/17 Stop Date: 09/16/17 Status: Ordered ondansetron 4 mg, 2 mL, Route: IVP, Drug form: INJ, ONCE, Dosing Weight 94.091, kg, Priority : STAT, Start date: 09/11/17 20:50:00 MARKETING [employer]IST[employer], Stop date: 09/11/17 20:50:00 MARKETING ASSIST[employer] Notes: (Same as: Zofran) MEDICATION WASTE Product Size: 4 mgProduct Was leidy: ___ mg Start Date: 09/11/17 Stop Date: 09/11/17 Status: Completed potassium chloride 40 mEq, 2 tab, Route: PO, Drug form: ERTAB, ONCE, Dosing Weight 94.091, kg, Prio rity: STAT, Start date: 09/11/17 22:35:00 [employer]ETING [employer]IST[employer], Stop date: 09/11/17 22:35:00 MARKETING ASSIST[employer] Notes: (Same as: K-Dur 20)"Do Not Crush" With food and full glass of water Start Date: 09/11/17 Stop Date: 09/11/17 Status: Completed Saline Flush 0.9% 10 mL, Route: IVP, Drug Form: INJ, Dosing Weight 94.091, kg, PRN, PRN Line Flush , Start date: 09/11/17 20:50:00 MARKETING ASSIST[employer], Duration: 30 day, Stop date: 10/11/17 20:49 :00 MARKETING ASSIST[employer] Notes: (Same as: BD Posiflush) Start Date: 09/11/17 Stop Date: 09/12/17 Status: Discontinued Zofran ODT 4 mg oral tablet, disintegrating 4 mg=1 tab, PO, TID, PRN Nausea and Vomiting, Dissolve tab under tongue, # 9 tab , 0 Refill(s) Start Date: 09/11/17 Stop Date: 09/14/17 Status: Ordered Results ELECTROLYTES Most recent to 1 oldest [Reference Range]: Sodium Lvl [135-145 142 mEq/L mEq/L] (09/11/17 8:59 PM) Potassium Lvl 3.3 mEq/L [3.5-5.1 mEq/L] *LOW* (09/11/17 8:59 PM) Chloride Lvl [95-109 105 mEq/L mEq/L] (09/11/17 8:59 PM) CO2 [24-32 mEq/L] 30 mEq/L (09/11/17 8:59 PM) AGAP [10.0-20.0 10.3 mEq/L mEq/L] (09/11/17 8:59 PM) CHEM PANEL Most recent to 1 oldest [Reference Range]: Creatinine Lvl 0.78 mg/dL [0.50-1.40 mg/dL] (09/11/17 8:59 PM) eGFR 86 mL/min/1.73m2 1 *NA* (09/11/17 8:59 PM) BUN [7-22 mg/dL] 16 mg/dL (09/11/17 8:59 PM) B/C Ratio [6-25] 21 (09/11/17 8:59 PM) Glucose Lvl [70-99 105 mg/dL mg/dL] *HI* (09/11/17 8:59 PM) Total Protein 7.0 g/dL [6.4-8.4 g/dL] (09/11/17 8:59 PM) Albumin Lvl [3.5-5.0 3.5 g/dL g/dL] (09/11/17 8:59 PM) Globulin [2.7-4.2 3.5 g/dL g/dL] (09/11/17 8:59 PM) A/G Ratio [0.7-1.6] 1.0 (09/11/17 8:59 PM) Calcium Lvl 8.5 mg/dL [8.5-10.5 mg/dL] (09/11/17 8:59 PM) ALT [0-65 unit/L] 17 unit/L (09/11/17 8:59 PM) AST [0-37 unit/L] 11 unit/L (09/11/17 8:59 PM) Alk Phos [39-136 102 unit/L unit/L] (09/11/17 8:59 PM) Bili Total [0.2-1.3 0.5 mg/dL mg/dL] (09/11/17 8:59 PM) 1Result Comment: The eGFR is calculated [...] 1 oldest [Reference Range]: UA Turbidity [Clear] Clear (09/11/17 7:20 PM) UA Color [Yellow] Yellow *NA* (09/11/17 7:20 PM) UA pH [5.0-8.0] 6.0 (09/11/17 7:20 PM) UA Spec Grav 1.025 [<=1.030] (09/11/17 7:20 PM) UA Glucose Negative [Negative] (09/11/17 7:20 PM) UA Blood [Negative] Negative (09/11/17 7:20 PM) UA Ketones Trace [Negative] *ABN* (09/11/17 7:20 PM) UA Protein Negative [Negative] (09/11/17 7:20 PM) UA Urobilinogen 1.0 EU/dL [0.1-1.0 EU/dL] (09/11/17 7:20 PM) UA Bili [Negative] Small *ABN* (09/11/17 7:20 PM) UA Leuk Est Negative [Negative] (09/11/17 7:20 PM) UA Nitrite Negative [Negative] (09/11/17 7:20 PM) UA WBC [None Seen 6-10 /HPF /HPF] *ABN* (09/11/17 7:20 PM) UA RBC [0-2 /HPF] 0-2 /HPF (09/11/17 7:20 PM) UA Bacteria [None None Seen Seen] (09/11/17 7:20 PM) UA Sq Epi [Few /LPF] Moderate /LPF *ABN* (09/11/17 7:20 PM) UA Mucus [None Seen Many /LPF /LPF] *ABN* (09/11/17 7:20 PM) Micro? Performed (09/11/17 7:20 PM) HEMATOLOGY Most recent to 1 oldest [Reference Range]: WBC [3.7-10.4 K/CMM] 7.7 K/CMM (09/11/17 8:59 PM) RBC [4.20-5.40 4.09 M/CMM M/CMM] *LOW* (09/11/17 8:59 PM) Hgb [12.0-16.0 g/dL] 12.7 g/dL (09/11/17 8:59 PM) Hct [36.0-48.0 %] 37.6 % (09/11/17 8:59 PM) MCV [80.0-98.0 fL] 91.9 fL (09/11/17 8:59 PM) MCH [27.0-31.0 pg] 31.1 pg *HI* (09/11/17 8:59 PM) MCHC [32.0-36.0 33.9 g/dL g/dL] (09/11/17 8:59 PM) RDW [11.5-14.5 %] 12.2 % (09/11/17 8:59 PM) Platelet [133-450 161 K/CMM K/CMM] (09/11/17 8:59 PM) MPV [7.4-10.4 fL] 11.0 fL *HI* (09/11/17 8:59 PM) Segs [45.0-75.0 %] 46.5 % (09/11/17 8:59 PM) Lymphocytes 44.3 % [20.0-40.0 %] *HI* (09/11/17 8:59 PM) Monocytes [2.0-12.0 6.4 % %] (09/11/17 8:59 PM) Eosinophils [0.0-4.0 2.5 % %] (09/11/17 8:59 PM) Basophils [0.0-1.0 0.3 % %] (09/11/17 8:59 PM) Segs-Bands # 3.6 K/CMM [1.5-8.1 K/CMM] (09/11/17 8:59 PM) Lymphocytes # 3.4 K/CMM [1.0-5.5 K/CMM] (09/11/17 8:59 PM) Monocytes # [0.0-0.8 0.5 K/CMM K/CMM] (09/11/17 8:59 PM) Eosinophils # 0.2 K/CMM [0.0-0.5 K/CMM] (09/11/17 8:59 PM) Immunizations No data available for this section Procedures Procedure Date Related Diagnosis Body Site Bypass of stomach Carpal tunnel release Hysterectomy Removal - procedure1 Shunt construction2 1of rib 2fpor pseudocerebri Social History Social History Type Response Smoking Status Never smoker; Exposure to Tobacco Smoke None; Cigarette Smoking Last 365 Days No; Reg Smoking Cessation Counseling No Assessment and Plan No data available for this section
--- OUTSIDE RECORDS SUMMARY | 2019-06-20 14:16 | XMS REPORT | Summary of Care ---
Author Author [facility] Organization [facility] Address Unknown Phone Unavailable Encounter HQ [place]) [phone] Date(s): 10/23/18 - 10/23/18 [facility] [id number] [place], [place] [address]- [phone] Encounter Diagnosis Insect bite (Discharge Diagnosis) - 10/23/18 Insect bite (nonvenomous) of unspecified parts of thorax, initial encounter (Final) - 10/31/18 Insect bite (nonvenomous), left lower leg, initial encounter (Final) - Insect bite (nonvenomous), right lower leg, initial encounter (Final) - Insect bite (nonvenomous) of left upper arm, initial encounter (Final) - Insect bite (nonvenomous) of right upper arm, initial encounter (Final) - Bitten or stung by nonvenomous insect and other nonvenomous arthropods, initial encounter (Final) - Essential (primary) hypertension (Final) - Discharge Disposition: Home or Self Care Attending Physician: Ian Deleon MD Vital Signs Most recent to 1 oldest [Reference Range]: Height 170.18 cm (10/23/18 1:59 PM) Temperature Oral 98.1 DegF [96.4-99.1 DegF] (10/23/18 1:59 PM) Blood Pressure 166/79 mmHg [90-140/60-90 mmHg] *HI* (10/23/18 1:59 PM) Respiratory Rate 18 BRMIN [14-20 BRMIN] (10/23/18 1:59 PM) Peripheral Pulse 52 bpm Rate [60-100 bpm] *LOW* (10/23/18 1:59 PM) Weight 75.455 kg (10/23/18 1:59 PM) Body Mass Index 26.05 m2 (10/23/18 1:59 PM) Problem List Condition Effective Dates Status Health Status Informant CSF leak(Confirmed) Resolved Depression(Confirmed Active ) Hypertension(Confirm Active ed) Allergies, Adverse Reactions, Alerts No Known Medication Allergies Medications Atarax 25 mg oral tab 25 mg=1 tab, PO, Q6H, X 7 day, # 28 tab, 0 Refill(s) Start Date: 10/23/18 Stop Date: 10/30/18 Status: Completed Results No data available for this section Immunizations No data available for this section [...]
--- OUTSIDE RECORDS SUMMARY | 2019-06-20 14:16 | XMS REPORT | Continuity of Care Document ---
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 Phone [employer] Unavailable Unavailable Problems Problem Status Onset Date Classification Date Reported Comments Source Other chronic pain 11/13/2018 05/23/2019 [facility] Insect bite of unspecified parts of thorax, initial encounter 11/01/2018 05/12/2019 [facility] NAUSEA AND VOMITING Active 10/31/2018 [facility] Insect bite 10/23/2018 05/12/2019 [facility] RASH Active 10/23/2018 [facility] Low back pain 07/14/2018 01/26/2019 [facility] Acute low back pain 07/09/2018 01/26/2019 [facility] Acute pelvic pain 07/09/2018 01/26/2019 [facility] R10.9 - UNSPECIFIED ABDOMINAL PAIN Active 11/24/[facility] Discharge Diagnosis: Acute constipation 11/01/2017 11/04/2017 [facility] CONTIPATION/POSSIBLE KIDNEY STONES Active 10/31/2017 [facility] Discharge Diagnosis: Peritoneal cyst 09/12/2017 09/15/2017 [facility] Discharge Diagnosis: Acute lower urinary tract infection 09/11/2017 09/15/2017 [facility] Discharge Diagnosis: Renal colic on right side 09/11/2017 09/15/2017 [facility] BACK PAIN Active 09/11/2017 [facility] Insect bite , left lower leg, initial encounter 05/12/2019 [facility] Insect bite , right lower leg, initial encounter 05/12/2019 [facility] Insect bite of left upper arm, initial encounter 05/12/2019 [facility] Insect bite of right upper arm, initial encounter 05/12/2019 [facility] Bitten or stung by nonvenomous insect and other nonvenomous arthropods, initial encounter 05/12/2019 [facility] Pelvic and perineal pain 01/26/2019 [facility] Other specified noninflammatory disorders of vagina 01/26/2019 [facility] Acquired absence of both cervix and uterus 01/26/2019 [facility] Personal history of urinary calculi 01/26/2019 [facility] Other specified postprocedural states 01/26/2019 [facility] Hypertension Active Problem 05/23/2019 [facility] Right upper quadrant pain 05/23/2019 [facility] Nausea with vomiting, unspecified 05/23/2019 [facility] Presence of cerebrospinal fluid drainage device 05/23/2019 [facility] Essential hypertension 05/23/2019 [facility] CSF leak Resolved Problem 05/23/2019 [facility] Depression Active Problem 05/23/2019 [facility] Medications Medication Details Route Status Patient Instructions Ordering Provider Order Date Source remove patch 1 patch, Route: TOP, Drug form: ERFILM, ONCE, Start date: 11/05/18 10:01:00 RESOLUTION REP, Stop date: 11/05/18 10:01:00 CSTNotes: Remove old patch before application of new patch. No Longer Active 11/05/2018 [facility] ropinirole 5 mg, 5 tab, Route: PO, Drug form: TAB, ONCE, Dosing Weight 75.455, kg, Start date: 11/02/18 13:16:00 RESOLUTION REP, Stop date: 11/02/18 13:16:00 CSTNotes: (Same as: Requip) No Longer Active 11/02/2018 [facility] ketOROLAC (ANES) IV, ONCE Inactive 11/02/2018 [facility] glycopyrrolate (ANES) Route: IV, Drug form: INJ, ONCE, Stop date: 11/02/18 12:51:00 RESOLUTION REP Inactive 11/02/2018 [facility] neostigmine (ANES) Route: IV, Drug form: INJ, ONCE, Stop date: 11/02/18 12:51:00 RESOLUTION REP Inactive 11/02/2018 [facility] ceFAZolin (ANES) Route: IV, Drug form: INJ, ONCE, Stop date: 11/02/18 12:46:00 RESOLUTION REP Inactive 11/02/2018 [facility] ondansetron (ANES) Route: IV, Drug form: INJ, ONCE, Stop date: 11/02/18 12:46:00 RESOLUTION REP Inactive 11/02/2018 [facility] acetaminophen (ANES) Route: IV, Drug form: INJ, ONCE, Stop date: 11/02/18 12:36:00 RESOLUTION REP Inactive 11/02/2018 [facility] ketAMINE (ANES) Route: IV, Drug form: INJ, ONCE, Stop date: 11/02/18 12:31:00 RESOLUTION REP Inactive 11/02/2018 [facility] magnesium sulfate (ANES) Route: IV, Drug form: INJ, ONCE, Stop date: 11/02/18 12:31:00 RESOLUTION REP Inactive 11/02/2018 [facility] cefOXitin (ANES) Route: IV, Drug form: INJ, ONCE, Stop date: 11/02/18 12:26:00 RESOLUTION REP Inactive 11/02/2018 [facility] fentaNYL (ANES) Route: IV, Drug form: INJ, ONCE, Stop date: 11/02/18 12:20:00 RESOLUTION REP Inactive 11/02/2018 [facility] succinylcholine (ANES) Route: IV, Drug form: INJ, ONCE, Stop date: 11/02/18 12:20:00 RESOLUTION REP Inactive 11/02/2018 [facility] propofol (ANES) Route: IV, Drug form: INJ, ONCE, Stop date: 11/02/18 12:20:00 RESOLUTION REP Inactive 11/02/2018 [facility] lidocaine (ANES) Route: IV, Drug form: INJ, ONCE, Stop date: 11/02/18 12:20:00 RESOLUTION REP Inactive 11/02/2018 [facility] midazolam (ANES) Route: IV, Drug form: SOLN, ONCE, Stop date: 11/02/18 12:20:00 RESOLUTION REP Inactive 11/02/2018 [facility] rocuronium (ANES) Route: IV, Drug form: INJ, ONCE, Stop date: 11/02/18 12:20:00 RESOLUTION REP Inactive 11/02/2018 [facility] famotidine (ANES) Route: IV, Drug form: INJ, ONCE, Stop date: 11/02/18 12:20:00 RESOLUTION REP Inactive 11/02/2018 [facility] dexamethasone (ANES) Route: IV, Drug form: INJ, ONCE, Stop date: 11/02/18 12:20:00 RESOLUTION REP Inactive 11/02/2018 [facility] metoclopramide ([facility]) Route: IV, Drug form: INJ, ONCE, Stop date: 11/02/18 12:20:00 RESOLUTION REP Inactive 11/02/2018 [facility] Ondansetron 4 mg, Route: IVP, ONCE, Dosing Weight 75.455, kg, PRN Nausea & Vomiting, Start date: 11/02/18 12:15:00 RESOLUTION REP Inactive 11/02/2018 [facility] Promethazine 6.25 mg, 0.25 mL, Route: IVPB, Drug form: INJ, ONCE, Dosing Weight 75.455, kg, PRN Nausea & Vomiting, Start date: 11/02/18 12:15:00 CSTNotes: Do not give IV push. (Same as: Phenergan) No Longer Active 11/02/2018 [facility] Morphine 2 mg, 0.5 mL, Route: IVP, Drug form: SOLN, Q5Min, Dosing Weight 75.455, kg, PRN Pain Score 1-5, Start date: 11/02/18 12:15:00 RESOLUTION REP, Duration: 5 doses or times, Stop date: 11/03/18 0:00:00 CSTNotes: (Same as:MORPhine Sulfate) No Longer Active 11/02/2018 [facility] Oxycodone 5 mg, 1 tab, Route: PO, Drug form: TAB, Q4H, Dosing Weight 75.455, kg, PRN Pain Score 4-6, Start date: 11/02/18 12:15:00 RESOLUTION REP, Duration: 1 day, Stop date: 11/03/18 12:14:00 CSTNotes: (Same as: Roxicodone) No Longer Active 11/02/2018 [facility] Labetalol 10 mg, 2 mL, Route: IVP, Drug form: INJ, Q5Min, Dosing Weight 75.455, kg, PRN Elevated BP, Start date: 11/02/18 12:15:00 RESOLUTION REP, Duration: 5 doses or times, Stop date: Limited # of timesNotes: (Same as: No rmodyne, Trandate) Push over 2 minutes Give bolus over 2-3 minutes. No Longer Active 11/02/2018 [facility] Hydralazine 10 mg, 0.5 mL, Route: IVP, Drug form: INJ, Q20Min, Dosing Weight 75.455, kg, PRN Elevated BP, Start date: 11/02/18 12:15:00 RESOLUTION REP, Duration: 2 doses or times, Stop date: Limited # of timesNotes: (Same as: Apresoline) Push over 5 minutes No Longer Active 11/02/2018 [facility] Flumazenil 0.2 mg, 2 mL, Route: IVP, Drug form: INJ, PRN, Dosing Weight 75.455, kg, PRN Benzodiazepine Reversal, Initial dose, Start date: 11/02/18 12:15:00 RESOLUTION REP, Duration: 30 day, Stop date: 12/02/18 12:14:00 C STNotes: (Same as: Romazicon) No Longer Active 11/02/2018 [facility] Hydromorphone 0.5 mg, 0.25 mL, Route: IVP, Drug form: INJ, Q5Min, Dosing Weight 75.455, kg, PRN Pain Score 6-10, Start date: 11/02/18 12:15:00 RESOLUTION REP, Duration: 4 doses or times, Stop date: Limited # of timesNotes: S ld as Dilaudid Inactive 11/02/2018 [facility] Naloxone 0.4 mg, 1 mL, Route: IVP, Drug form: INJ, Q2MIN, Dosing Weight 75.455, kg, PRN Narcotic Reversal, Start date: 11/02/18 12:15:00 RESOLUTION REP, Duration: 8 doses or times, Stop date: 11/03/18 0:00:00 CSTNotes: Same as Narcan No Longer Active 11/02/2018 [facility] Sodium Chloride 0.9% (Bolus) IV 500 mL, 1500 ml/hr, Infuse Over: 20 minutes, Route: IV, 500, Drug form: INJ, ONCE, Dosing Weight 75.455 kg, Start date: 11/02/18 12:15:00 RESOLUTION REP, Stop date: 11/02/18 12:15:00 RESOLUTION REP No Longer Active 11/02/2018 [facility] dexmedetomidine (ANES) 200 microgram Route: IV, Drug form: INJ, Start date: 11/02/18 12:08:00 RESOLUTION REP, Stop date: 11/02/18 13:08:00 RESOLUTION REP Inactive 11/02/2018 [facility] Lactated Ringers Injection IV (ANES) 1000 mL Route: IV, Total Volume: 1,000, Start date: 11/02/18 11:23:00 RESOLUTION REP, Stop date: 11/02/18 12:23:00 RESOLUTION REP Inactive 11/02/2018 [facility] heparin 5,000 unit, 1 mL, Route: SUB-Q, Drug form: INJ, ONCE, Start date: 11/02/18 10:05:00 RESOLUTION REP, Stop date: 11/02/18 10:05:00 CSTNotes: porcine heparin Inactive 11/02/2018 [facility] scopolamine 1 patch, Route: TOP, Drug form: ERFILM, ONCE, Start date: 11/02/18 10:00:00 RESOLUTION REP, Stop date: 11/02/18 10:00:00 CSTNotes: Change patch every 72 hours (Same as: Transderm-Scop) Inactive 11/02/2018 [facility] Buprenorphine 0.3 MG Buccal Film [Belbuca] 300 microgram=1 ea, BUC, Q12H, 0 Refill(s) Active 11/01/2018 [facility] metoprolol tartrate 50 mg oral tablet 50 mg=1 tab, PO, Bedtime, 0 Refill(s) Active 11/01/2018 [facility] Vitamin B12 INJ, 0 Refill(s) Active 11/01/2018 [facility] gabapentin 400 MG Oral Capsule 400 mg=1 cap, PO, Q8H, 0 Refill(s) Active 11/01/2018 [facility] tizanidine 4 mg oral tablet 8 mg=2 tab, PO, Q8H, 0 Refill(s) Active 11/01/2018 [facility] Hydroxyzine Hydrochloride 25 MG Oral Tablet 25 mg=1 tab, PO, Q6H, X 7 day, # 28 tab, 0 Refill(s) No Longer Active 10/23/2018 [facility] Morphine 4 mg, Route: IVP, ONCE, Dosing Weight 79.545, kg, Priority: STAT, Start date: 07/09/18 18:23:00 CDT, Stop date: 07/09/18 18:23:00 CDT Inactive 07/09/2018 [facility] Acetaminophen 300 MG / Codeine Phosphate 30 MG Oral Tablet [Tylenol with Codeine #3] 1 tab, PO, BID, PRN Pain, Do not drive while taking this medication, X 4 day, # 8 tab, 0 Refill(s) No Longer Active 07/09/2018 [facility] Morphine 4 mg, 1 mL, Route: IVP, Drug form: SOLN, ONCE, Dosing Weight 79.545, kg, Priority: STAT, Start date: 07/09/18 18:03:00 CDT, Stop date: 07/09/18 18:03:00 CDTNotes: (Same as:MORPhine Sulfate) Inactive 07/09/2018 [facility] NS (Bolus) IV 1,000 mL, 1,000 ml/hr, Infuse Over: 1 hr, Route: IV, 1,000, Drug form: INJ, ONCE, Priority: STAT, Dosing Weight 79.545 kg, Start date: 07/09/18 16:19:00 CDT, Stop date: 07/09/18 16:19:00 CDT Inactive 07/09/2018 [facility] Acetaminophen 325 MG / Hydrocodone Bitartrate 5 MG Oral Tablet [Ashburn 5/325] 1 tab, Route: PO, Drug Form: TAB, Dosing Weight 79.545, kg, ONCE, STAT, Start date: 07/09/18 16:19:00 CDT, Stop date: 07/09/18 16:19:00 CDTNotes: (Same as: Ashburn 325/5) Do not exceed 4gm/day of acetaminophen. Inactive 07/09/2018 [facility] Morphine 4 mg, 1 mL, Route: IVP, Drug form: SOLN, ONCE, Dosing Weight 79.545, kg, Priority: STAT, Start date: 07/09/18 16:19:00 CDT, Stop date: 07/09/18 16:19:00 CDTNotes: (Same as:MORPhine Sulfate) Inactive 07/09/2018 [facility] Tylenol 650 mg, 2 tab, Route: PO, Drug form: TAB, ONCE, Dosing Weight 79.545, kg, Priority: STAT, Start date: 07/09/18 15:17:00 CDT, Stop date: 07/09/18 15:17:00 CDTNotes: Do not exceed 4 gm/day. (Same as: Tylenol) Inactive 07/09/2018 [facility] ketOROLAC 15 mg/mL injectable solution 15 mg, 0.5 mL, Route: IVP, Drug form: INJ, ONCE, Dosing Weight 79.545, kg, Priority: STAT, Start date: 07/09/18 15:17:00 CDT, Stop date: 07/09/18 15:17:00 CDTNotes: (Same as:Toradol) IV bolus must be given >15 seconds. Give IM administration slowly and deeply into the muscle. Not for use > 4 days MEDICATION WASTE Product Size: 30 mg Product Wasted: ___ mg Inactive 07/09/2018 [facility] Morphine 4 mg, 1 mL, Route: IVP, Drug form: SOLN, ONCE, Dosing Weight 79.545, kg, Priority: STAT, Start date: 07/09/18 15:17:00 CDT, Stop date: 07/09/18 15:17:00 CDTNotes: (Same as:MORPhine Sulfate) Inactive 07/09/2018 [facility] Valium 5 mg, 1 tab, Route: PO, Drug form: TAB, ONCE, Dosing Weight 79.545, kg, Priority: STAT, Start date: 07/09/18 15:17:00 CDT, Stop date: 07/09/18 15:17:00 CDTNotes: (Same as: Valium) Inactive 07/09/2018 [facility] Docusate Sodium 50 MG / sennosides, LONG TERM 8.6 MG Oral Tablet 2 tab, Route: PO, Drug Form: TAB, Dosing Weight 90.909, kg, Bedtime, Start date: 11/01/17 21:00:00 RESOLUTION REP, Duration: 30 day, Stop date: 11/30/17 21:00:00 CSTNotes: (Same as Senokot-S) Equiv. to Katarzyna-Colace. Inactive 11/02/2017 [facility] Ondansetron 4 MG Disintegrating Tablet [Zofran] 4 mg=1 tab, PO, BID, PRN Nausea and Vomiting, Dissolve tab under tongue, # 10 tab, 0 Refill(s) Active 11/01/2017 [facility] Docusate Sodium 50 MG Oral Capsule 50 mg=1 cap, PO, BID, PRN Constipation, # 180 cap, 0 Refill(s) Active 11/01/2017 [facility] senna 25 mg oral tablet 50 mg=2 tab, PO, BID, PRN for constipation, X 25 day, # 100 tab, 0 Refill(s) Active 11/01/2017 [facility] POLYETHYLENE GLYCOL 3350 142 MG/ML Oral Solution [Miralax] 17 gm, PO, Daily, X 31 day, # 527 gm, 0 Refill(s) Active 11/01/2017 [facility] Cephalexin 500 MG Oral Capsule [Keflex] 500 mg=1 cap, PO, QID, X 7 day, # 28 cap, 0 Refill(s) Active 11/01/2017 [facility] Zofran ODT 4 mg, 1 tab, Route: PO, Drug form: TABDIS, ONCE, Dosing Weight 90.909, kg, Priority: STAT, Start date: 11/01/17 5:08:00 RESOLUTION REP, Stop date: 11/01/17 5:08:00 CSTNotes: (Same as: Zofran ODT) Inactive 11/01/2017 [facility] Acetaminophen 325 MG / Hydrocodone Bitartrate 10 MG Oral Tablet [Ashburn 10/325] 1 tab, Route: PO, Drug Form: TAB, Dosing Weight 90.909, kg, ONCE, STAT, Start date: 11/01/17 5:08:00 RESOLUTION REP, Stop date: 11/01/17 5:08:00 CSTNotes: Do not exceed 4gm/day of acetaminophen. (Same as: Ashburn 325/10) Inactive 11/01/2017 [facility] Fleet Enema 133 mL, Route: IA, Drug Form: SOLN, Dosing Weight 90.909, kg, ONCE, Start date: 11/01/17 4:16:00 RESOLUTION REP, Stop date: 11/01/17 4:16:00 RESOLUTION REP, For Constipation > 12 years, Pediatric Dosing Inactive 11/01/2017 [facility] Docusate Sodium 50 MG / sennosides, LONG TERM 8.6 MG Oral Tablet 2 tab, Route: PO, Drug Form: TAB, Dosing Weight 90.909, kg, ONCE, Start date: 11/01/17 4:03:00 RESOLUTION REP, Stop date: 11/01/17 4:03:00 CSTNotes: (Same as Senokot-S) Equiv. to Katarzyna-Colace. Inactive 11/01/2017 [facility] Acetaminophen 325 MG / Hydrocodone Bitartrate 10 MG Oral Tablet [Ashburn 10/325] 1 tab, Route: PO, Drug Form: TAB, Dosing Weight 90.909, kg, ONCE, STAT, Start date: 11/01/17 3:57:00 RESOLUTION REP, Stop date: 11/01/17 3:57:00 CSTNotes: Do not exceed 4gm/day of acetaminophen. (Same as: Ashburn 325/10) Inactive 11/01/2017 [facility] potassium chloride 40 mEq, 2 tab, Route: PO, Drug form: ERTAB, ONCE, Dosing Weight 94.091, kg, Priority: STAT, Start date: 09/11/17 22:35:00 RESOLUTION REP, Stop date: 09/11/17 22:35:00 CSTNotes: (Same as: K-Dur 20) "Do Not Crush" With food and full glass of water Inactive 09/12/2017 [facility] Motrin 800 mg oral tablet 800 mg=1 tab, PO, Q8H, PRN Pain, Take with food, X 7 day, # 21 tab, 0 Refill(s) Active 09/12/2017 [facility] Zofran ODT 4 mg oral tablet, disintegrating 4 mg=1 tab, PO, TID, PRN Nausea and Vomiting, Dissolve tab under tongue, # 9 tab, 0 Refill(s) Active 09/12/2017 [facility] Keflex 500 mg oral capsule 500 mg=1 cap, PO, TID, X 10 day, # 30 cap, 0 Refill(s) Active 09/12/2017 [facility] Flomax 0.4 mg oral capsule 0.4 mg=1 cap, PO, Daily, # 7 cap, 0 Refill(s) Active 09/12/2017 [facility] Ashburn 5/325 oral tablet 1-2 tab, PO, Q4-6H, PRN Pain, X 5 day, # 20 tab, 0 Refill(s) Active 09/12/2017 [facility] ketOROLAC 30 mg/mL injectable solution 30 mg, 1 mL, Route: IVP, Drug form: INJ, ONCE, Dosing Weight 94.091, kg, Priority: STAT, Start date: 09/11/17 22:29:00 RESOLUTION REP, Stop date: 09/11/17 22:29:00 CSTNotes: (Same as:Toradol) IV bolus must be given >15 seconds. Give IM administration slowly and deeply into the muscle. Not for use > 4 days MEDICATION WASTE Product Size: 30 mg Product Wasted: ___ mg Inactive 09/12/2017 [facility] Keflex 500 mg, 1 cap, Route: PO, Drug form: CAP, ONCE, Dosing Weight 94.091, kg, Priority: STAT, Start date: 09/11/17 22:29:00 RESOLUTION REP, Stop date: 09/11/17 22:29:00 CSTNotes: Take on empty stomach. (Same As: Keflex) Inactive 09/12/2017 [facility] morphine Sulfate 4 mg, 1 mL, Route: IVP, Drug form: INJ, ONCE, Dosing Weight 94.091, kg, Priority: STAT, Start date: 09/11/17 20:50:00 RESOLUTION REP, Stop date: 09/11/17 20:50:00 CSTNotes: (Same as:MORPhine Sulfate) Inactive 09/12/2017 [facility] ondansetron 4 mg, 2 mL, Route: IVP, Drug form: INJ, ONCE, Dosing Weight 94.091, kg, Priority: STAT, Start date: 09/11/17 20:50:00 RESOLUTION REP, Stop date: 09/11/17 20:50:00 CSTNotes: (Same as: Zofran) MEDICATION WASTE Product Size: 4 mg Product Wasted: ___ mg Inactive 09/12/2017 [facility] Saline Flush 0.9% 10 mL, Route: IVP, Drug Form: INJ, Dosing Weight 94.091, kg, PRN, PRN Line Flush, Start date: 09/11/17 20:50:00 RESOLUTION REP, Duration: 30 day, Stop date: 10/11/17 20:49:00 CSTNotes: (Same as: BD Posiflush) No Longer Active 09/12/2017 [facility] Allergies, Adverse Reactions, Alerts Substance Category Reaction Severity Reaction type Status Date Reported Comments Source No Known Medication Allergies Assertion Drug allergy [facility] Immunizations No Data Provided for This Section Results Order Name Results Value Reference Range Date Interpretation Comments Source BLOOD BANK RESULTS ABO/Rh A POS 11/02/2018 [facility] BLOOD BANK RESULTS Antibody Scrn Negative (11/02/18 9:15 AM) 11/02/2018 [facility] CHEM PANEL eGFR 79 11/02/2018 Result Comment: The eGFR is calculated using the [...] from the National Kidney Disease Education Program (NKDEP) which additionally recommends that when the eGFR is used in patients with extremes of body mass index for purposes of drug dosing, the eGFR should be multiplied by the estimated BMI. [facility] CHEM PANEL Bili Total 0.9 0.2 - 1.3 11/02/2018 [facility] CHEM PANEL Alk Phos 74 39 - 136 11/02/2018 [facility] CHEM PANEL ALT 22 0 - 65 11/02/2018 [facility] CHEM PANEL Albumin Lvl 4.1 3.5 - 5.0 11/02/2018 [facility] CHEM PANEL AST 14 0 - 37 11/02/2018 [facility] CHEM PANEL Chloride Lvl 104 95 - 109 11/02/2018 [facility] CHEM PANEL CO2 29 24 - 32 11/02/2018 [facility] CHEM PANEL Calcium Lvl 8.8 8.5 - 10.5 11/02/2018 [facility] CHEM PANEL Total Protein 8.1 6.4 - 8.4 11/02/2018 [facility] CHEM PANEL BUN 13 7 - 22 11/02/2018 [facility] CHEM PANEL Creatinine Lvl 0.83 0.50 - 1.40 11/02/2018 [facility] CHEM PANEL Glucose Lvl 77 70 - 99 11/02/2018 [facility] CHEM PANEL Potassium Lvl 3.6 3.5 - 5.1 11/02/2018 [facility] CHEM PANEL Sodium Lvl 140 135 - 145 11/02/2018 [facility] CHEM PANEL Globulin 4.0 2.7 - 4.2 11/02/2018 [facility] CHEM PANEL A/G Ratio 1.0 0.7 - 1.6 11/02/2018 [facility] CHEM PANEL B/C Ratio 16 6 - 25 11/02/2018 [facility] CHEM PANEL AGAP 10.6 10.0 - 20.0 11/02/2018 [facility] HEMATOLOGY MPV 9.7 7.4 - 10.4 11/02/2018 [facility] HEMATOLOGY MCH 31.1 27.0 - 31.0 11/02/2018 [facility] HEMATOLOGY Platelet 196 133 - 450 11/02/2018 [facility] HEMATOLOGY RDW 13.8 11.5 - 14.5 11/02/2018 [facility] HEMATOLOGY MCHC 33.9 32.0 - 36.0 11/02/2018 [facility] HEMATOLOGY MCV 91.9 80.0 - 98.0 11/02/2018 [facility] HEMATOLOGY Hct 41.2 36.0 - 48.0 11/02/2018 [facility] HEMATOLOGY Hgb 14.0 12.0 - 16.0 11/02/2018 [facility] HEMATOLOGY WBC 5.7 3.7 - 10.4 11/02/2018 [facility] HEMATOLOGY RBC 4.49 4.20 - 5.40 11/02/2018 [facility] HEMATOLOGY Eosinophils 1.3 0.0 - 4.0 11/02/2018 [facility] HEMATOLOGY Neutrophils # 3.4 1.5 - 8.1 11/02/2018 [facility] HEMATOLOGY Lymphocytes # 1.9 1.0 - 5.5 11/02/2018 [facility] HEMATOLOGY Basophils 0.4 0.0 - 1.0 11/02/2018 [facility] HEMATOLOGY Monocytes # 0.4 0.0 - 0.8 11/02/2018 [facility] HEMATOLOGY Eosinophils # 0.1 0.0 - 0.5 11/02/2018 [facility] HEMATOLOGY Lymphocytes 32.9 20.0 - 40.0 11/02/2018 [facility] HEMATOLOGY Segs 59.2 45.0 - 75.0 11/02/2018 [facility] HEMATOLOGY Monocytes 6.2 2.0 - 12.0 11/02/2018 [facility] HEMATOLOGY PT 13.3 12.0 - 14.7 11/02/2018 [facility] HEMATOLOGY PTT 32.4 22.9 - 35.8 11/02/2018 [facility] HEMATOLOGY INR 1.03 0.85 - 1.17 11/02/2018 [facility] URINE AND STOOL UA Bacteria Occasional /HPF None Seen /HPF 11/02/2018 [facility] URINE AND STOOL UA Mucus Few /LPF None Seen /LPF 11/02/2018 [facility] URINE AND STOOL UA WBC 35 0 - 5 11/02/2018 [facility] URINE AND STOOL UA Sq Epi Few /LPF Few /LPF 11/02/2018 [facility] URINE AND STOOL UA Nitrite Positive *ABN* (11/02/18 9:02 AM) Negative 11/02/2018 [facility] URINE AND STOOL UA Blood Negative (11/02/18 9:02 AM) Negative 11/02/2018 [facility] URINE AND STOOL UA Urobilinogen 2.0 0.1 - 1.0 11/02/2018 [facility] URINE AND STOOL UA RBC 1 0 - 2 11/02/2018 [facility] URINE AND STOOL UA Leuk Est Moderate *ABN* (11/02/18 9:02 AM) Negative 11/02/2018 [facility] URINE AND STOOL UA Turbidity Clear (11/02/18 9:02 AM) Clear 11/02/2018 [facility] URINE AND STOOL UA Color Yellow *NA* (11/02/18 9:02 AM) Yellow 11/02/2018 [facility] URINE AND STOOL UA Glucose Negative mg/dL Negative mg/dL 11/02/2018 [facility] URINE AND STOOL UA Protein Negative mg/dL Negative mg/dL 11/02/2018 [facility] URINE AND STOOL UA pH 6.5 5.0 - 8.0 11/02/2018 [facility] URINE AND STOOL UA Spec Grav 1.021 <=1.030 11/02/2018 [facility] URINE AND STOOL UA Ketones Negative mg/dL Negative mg/dL 11/02/2018 [facility] URINE AND STOOL UA Bili Negative *NA* (11/02/18 9:02 AM) Negative 11/02/2018 [facility] CHEM PANEL eGFR 88 07/09/2018 Result Comment: The eGFR is calculated using the [...] from the National Kidney Disease Education Program (NKDEP) which additionally recommends that when the eGFR is used in patients with extremes of body mass index for purposes of drug dosing, the eGFR should be multiplied by the estimated BMI. [facility] CHEM PANEL Calcium Lvl 8.6 8.5 - 10.5 07/09/2018 [facility] CHEM PANEL Chloride Lvl 104 95 - 109 07/09/2018 [facility] CHEM PANEL BUN 12 7 - 22 07/09/2018 [facility] CHEM PANEL Creatinine Lvl 0.77 0.50 - 1.40 07/09/2018 [facility] CHEM PANEL Potassium Lvl 3.4 3.5 - 5.1 07/09/2018 [facility] CHEM PANEL Sodium Lvl 143 135 - 145 07/09/2018 [facility] CHEM PANEL CO2 32 24 - 32 07/09/2018 [facility] CHEM PANEL Glucose Lvl 81 70 - 99 07/09/2018 [facility] CHEM PANEL AGAP 10.4 10.0 - 20.0 07/09/2018 [facility] HEMATOLOGY Monocytes # 0.4 0.0 - 0.8 07/09/2018 [facility] HEMATOLOGY Eosinophils # 0.1 0.0 - 0.5 07/09/2018 [facility] HEMATOLOGY Monocytes 7.4 2.0 - 12.0 07/09/2018 [facility] HEMATOLOGY Lymphocytes 42.6 20.0 - 40.0 07/09/2018 [facility] HEMATOLOGY Eosinophils 1.1 0.0 - 4.0 07/09/2018 [facility] HEMATOLOGY Segs 48.6 45.0 - 75.0 07/09/2018 [facility] HEMATOLOGY Basophils 0.3 0.0 - 1.0 07/09/2018 [facility] HEMATOLOGY Neutrophils # 2.9 1.5 - 8.1 07/09/2018 [facility] HEMATOLOGY Lymphocytes # 2.6 1.0 - 5.5 07/09/2018 [facility] HEMATOLOGY Hct 38.9 36.0 - 48.0 07/09/2018 [facility] MCH 31.4 27.0 - 31.0 07/09/2018 [facility] HEMATOLOGY MCV 93.8 80.0 - 98.0 07/09/2018 [facility] HEMATOLOGY MCHC 33.5 32.0 - 36.0 07/09/2018 [facility] HEMATOLOGY Platelet 164 133 - 450 07/09/2018 [facility] HEMATOLOGY RDW 11.6 11.5 - 14.5 07/09/2018 [facility] HEMATOLOGY MPV 9.7 7.4 - 10.4 07/09/2018 [facility] HEMATOLOGY Hgb 13.0 12.0 - 16.0 07/09/2018 [facility] HEMATOLOGY RBC 4.15 4.20 - 5.40 07/09/2018 [facility] HEMATOLOGY WBC 6.0 3.7 - 10.4 07/09/2018 [facility] URINE AND STOOL UA Sq Epi Moderate /LPF Few /LPF 07/09/2018 [facility] URINE AND STOOL UA Mucus Many /LPF None Seen /LPF 07/09/2018 [facility] URINE AND STOOL UA Bacteria Many /HPF None Seen /HPF 07/09/2018 [facility] URINE AND STOOL UA RBC 0-2 /HPF 0 - 2 07/09/2018 [facility] URINE AND STOOL UA WBC 3-5 /HPF None Seen /HPF 07/09/2018 [facility] URINE AND STOOL UA Nitrite Negative (07/09/18 3:42 PM) Negative 07/09/2018 [facility] URINE AND STOOL UA Leuk Est Negative (07/09/18 3:42 PM) Negative 07/09/2018 [facility] URINE AND STOOL UA Urobilinogen 0.2 0.1 - 1.0 07/09/2018 [facility] URINE AND STOOL UA Protein Negative (07/09/18 3:42 PM) Negative 07/09/2018 [facility] URINE AND STOOL UA pH 6.0 5.0 - 8.0 07/09/2018 [facility] URINE AND STOOL UA Turbidity Clear (07/09/18 3:42 PM) Clear 07/09/2018 [facility] URINE AND STOOL UA Spec Grav >=1.030 *ABN* (07/09/18 3:42 PM) <=1.030 07/09/2018 [facility] URINE AND STOOL UA Color Alana *ABN* (07/09/18 3:42 PM) Yellow 07/09/2018 [facility] URINE AND STOOL UA Bili Negative *NA* (07/09/18 3:42 PM) Negative 07/09/2018 [facility] URINE AND STOOL UA Blood Negative (07/09/18 3:42 PM) Negative 07/09/2018 [facility] URINE AND STOOL UA Glucose Negative (07/09/18 3:42 PM) Negative 07/09/2018 [facility] URINE AND STOOL UA Ketones Negative *NA* (07/09/18 3:42 PM) Negative 07/09/2018 [facility] URINE CHEM U Preg Negative (07/09/18 3:42 PM) Negative 07/09/2018 [facility] CHEM PANEL Lipase Lvl 167 73 - 393 11/01/2017 [facility] ELECTROLYTES AGAP 10.8 10.0 - 20.0 11/01/2017 [facility] ELECTROLYTES B/C Ratio 20 6 - 25 11/01/2017 [facility] ELECTROLYTES Globulin 3.9 2.7 - 4.2 11/01/2017 [facility] ELECTROLYTES A/G Ratio 1.0 0.7 - 1.6 11/01/2017 [facility] ELECTROLYTES eGFR 73 11/01/2017 Result Comment: The eGFR is calculated using the [...] from the National Kidney Disease Education Program (NKDEP) which additionally recommends that when the eGFR is used in patients with extremes of body mass index for purposes of drug dosing, the eGFR should be multiplied by the estimated BMI. [facility] ELECTROLYTES CO2 31 24 - 32 11/01/2017 [facility] ELECTROLYTES Calcium Lvl 9.0 8.5 - 10.5 11/01/2017 [facility] ELECTROLYTES Sodium Lvl 143 135 - 145 11/01/2017 [facility] ELECTROLYTES Potassium Lvl 3.8 3.5 - 5.1 11/01/2017 [facility] ELECTROLYTES Chloride Lvl 105 95 - 109 11/01/2017 [facility] ELECTROLYTES Glucose Lvl 97 70 - 99 11/01/2017 [facility] ELECTROLYTES BUN 18 7 - 22 11/01/2017 [facility] ELECTROLYTES Creatinine Lvl 0.89 0.50 - 1.40 11/01/2017 [facility] ELECTROLYTES Bili Total 0.5 0.2 - 1.3 11/01/2017 [facility] ELECTROLYTES AST 19 0 - 37 11/01/2017 [facility] ELECTROLYTES Alk Phos 91 39 - 136 11/01/2017 [facility] ELECTROLYTES Albumin Lvl 3.8 3.5 - 5.0 11/01/2017 [facility] ELECTROLYTES ALT 27 0 - 65 11/01/2017 [facility] ELECTROLYTES Total Protein 7.7 6.4 - 8.4 11/01/2017 [facility] HEMATOLOGY Lymphocytes 55.9 20.0 - 40.0 11/01/2017 [facility] HEMATOLOGY Monocytes 5.9 2.0 - 12.0 11/01/2017 [facility] HEMATOLOGY Monocytes # 0.4 0.0 - 0.8 11/01/2017 [facility] HEMATOLOGY Eosinophils # 0.1 0.0 - 0.5 11/01/2017 [facility] HEMATOLOGY Eosinophils 1.9 0.0 - 4.0 11/01/2017 [facility] HEMATOLOGY Segs 35.8 45.0 - 75.0 11/01/2017 [facility] HEMATOLOGY Basophils 0.5 0.0 - 1.0 11/01/2017 [facility] HEMATOLOGY Segs-Bands # 2.5 1.5 - 8.1 11/01/2017 [facility] HEMATOLOGY Lymphocytes # 3.9 1.0 - 5.5 11/01/2017 [facility] HEMATOLOGY MPV 10.4 7.4 - 10.4 11/01/2017 [facility] HEMATOLOGY MCHC 33.7 32.0 - 36.0 11/01/2017 [facility] HEMATOLOGY RDW 14.0 11.5 - 14.5 11/01/2017 [facility] HEMATOLOGY Platelet 177 133 - 450 11/01/2017 [facility] HEMATOLOGY Hgb 13.7 12.0 - 16.0 11/01/2017 [facility] HEMATOLOGY WBC 7.1 3.7 - 10.4 11/01/2017 [facility] HEMATOLOGY RBC 4.42 4.20 - 5.40 11/01/2017 [facility] HEMATOLOGY Hct 40.6 36.0 - 48.0 11/01/2017 [facility] HEMATOLOGY MCV 91.9 80.0 - 98.0 11/01/2017 [facility] HEMATOLOGY MCH 31.0 27.0 - 31.0 11/01/2017 [facility] URINE AND STOOL UA Mucus Moderate /LPF None Seen /LPF 11/01/2017 [facility] URINE AND STOOL UA Bacteria None Seen (10/31/17 7:35 PM) None Seen 11/01/2017 [facility] URINE AND STOOL UA Sq Epi Few /LPF Few /LPF 11/01/2017 [facility] URINE AND STOOL UA RBC 0-2 /HPF 0 - 2 11/01/2017 [facility] URINE AND STOOL UA WBC 6-10 /HPF None Seen /HPF 11/01/2017 [facility] URINE AND STOOL Micro? Performed (10/31/17 7:35 PM) 11/01/2017 [facility] URINE AND STOOL UA Nitrite Negative (10/31/17 7:35 PM) Negative 11/01/2017 [facility] URINE AND STOOL UA Leuk Est Small *ABN* (10/31/17 7:35 PM) Negative 11/01/2017 [facility] URINE AND STOOL UA Urobilinogen 0.2 0.1 - 1.0 11/01/2017 [facility] URINE AND STOOL UA Glucose Negative (10/31/17 7:35 PM) Negative 11/01/2017 [facility] URINE AND STOOL UA Ketones Negative *NA* (10/31/17 7:35 PM) Negative 11/01/2017 [facility] URINE AND STOOL UA Bili Negative *NA* (10/31/17 7:35 PM) Negative 11/01/2017 [facility] URINE AND STOOL UA Blood Negative (10/31/17 7:35 PM) Negative 11/01/2017 [facility] URINE AND STOOL UA Color Yellow *NA* (10/31/17 7:35 PM) Yellow 11/01/2017 [facility] URINE AND STOOL UA Turbidity Slight Cloudy (10/31/17 7:35 PM) Clear 11/01/2017 [facility] URINE AND STOOL UA Spec Grav 1.025 <=1.030 11/01/2017 [facility] URINE AND STOOL UA pH 6.0 5.0 - 8.0 11/01/2017 [facility] URINE AND STOOL UA Protein Negative (10/31/17 7:35 PM) Negative 11/01/2017 [facility] CHEM PANEL eGFR 86 09/12/2017 Result Comment: The eGFR is calculated using the [...] from the National Kidney Disease Education Program (NKDEP) which additionally recommends that when the eGFR is used in patients with extremes of body mass index for purposes of drug dosing, the eGFR should be multiplied by the estimated BMI. [facility] CHEM PANEL Chloride Lvl 105 95 - 109 09/12/2017 [facility] CHEM PANEL Potassium Lvl 3.3 3.5 - 5.1 09/12/2017 [facility] CHEM PANEL Albumin Lvl 3.5 3.5 - 5.0 09/12/2017 [facility] CHEM PANEL Alk Phos 102 39 - 136 09/12/2017 [facility] CHEM PANEL ALT 17 0 - 65 09/12/2017 [facility] CHEM PANEL Glucose Lvl 105 70 - 99 09/12/2017 [facility] CHEM PANEL Creatinine Lvl 0.78 0.50 - 1.40 09/12/2017 [facility] CHEM PANEL BUN 16 7 - 22 09/12/2017 [facility] CHEM PANEL Sodium Lvl 142 135 - 145 09/12/2017 [facility] CHEM PANEL Bili Total 0.5 0.2 - 1.3 09/12/2017 [facility] CHEM PANEL Calcium Lvl 8.5 8.5 - 10.5 09/12/2017 [facility] CHEM PANEL CO2 30 24 - 32 09/12/2017 [facility] CHEM PANEL Total Protein 7.0 6.4 - 8.4 09/12/2017 [facility] CHEM PANEL AST 11 0 - 37 09/12/2017 [facility] CHEM PANEL Globulin 3.5 2.7 - 4.2 09/12/2017 [facility] CHEM PANEL A/G Ratio 1.0 0.7 - 1.6 09/12/2017 [facility] CHEM PANEL AGAP 10.3 10.0 - 20.0 09/12/2017 [facility] CHEM PANEL B/C Ratio 21 6 - 25 09/12/2017 [facility] HEMATOLOGY MCH 31.1 27.0 - 31.0 09/12/2017 [facility] HEMATOLOGY MCV 91.9 80.0 - 98.0 09/12/2017 [facility] HEMATOLOGY MPV 11.0 7.4 - 10.4 09/12/2017 [facility] HEMATOLOGY Platelet 161 133 - 450 09/12/2017 [facility] HEMATOLOGY RDW 12.2 11.5 - 14.5 09/12/2017 [facility] MCHC 33.9 32.0 - 36.0 09/12/2017 [facility] WBC 7.7 3.7 - 10.4 09/12/2017 [facility] HEMATOLOGY Hct 37.6 36.0 - 48.0 09/12/2017 [facility] HEMATOLOGY RBC 4.09 4.20 - 5.40 09/12/2017 [facility] HEMATOLOGY Hgb 12.7 12.0 - 16.0 09/12/2017 [facility] HEMATOLOGY Lymphocytes # 3.4 1.0 - 5.5 09/12/2017 [facility] HEMATOLOGY Monocytes # 0.5 0.0 - 0.8 09/12/2017 [facility] HEMATOLOGY Eosinophils # 0.2 0.0 - 0.5 09/12/2017 [facility] HEMATOLOGY Segs-Bands # 3.6 1.5 - 8.1 09/12/2017 [facility] HEMATOLOGY Monocytes 6.4 2.0 - 12.0 09/12/2017 [facility] HEMATOLOGY Eosinophils 2.5 0.0 - 4.0 09/12/2017 [facility] HEMATOLOGY Basophils 0.3 0.0 - 1.0 09/12/2017 [facility] HEMATOLOGY Segs 46.5 45.0 - 75.0 09/12/2017 [facility] HEMATOLOGY Lymphocytes 44.3 20.0 - 40.0 09/12/2017 [facility] URINE AND STOOL UA pH 6.0 5.0 - 8.0 09/12/2017 [facility] URINE AND STOOL UA Turbidity Clear (09/11/17 7:20 PM) Clear 09/12/2017 [facility] URINE AND STOOL UA Color Yellow *NA* (09/11/17 7:20 PM) Yellow 09/12/2017 [facility] URINE AND STOOL UA Spec Grav 1.025 <=1.030 09/12/2017 [facility] URINE AND STOOL UA Glucose Negative (09/11/17 7:20 PM) Negative 09/12/2017 [facility] URINE AND STOOL UA Protein Negative (09/11/17 7:20 PM) Negative 09/12/2017 [facility] URINE AND STOOL UA Bili Small *ABN* (09/11/17 7:20 PM) Negative 09/12/2017 [facility] URINE AND STOOL UA Ketones Trace *ABN* (09/11/17 7:20 PM) Negative 09/12/2017 [facility] URINE AND STOOL UA Blood Negative (09/11/17 7:20 PM) Negative 09/12/2017 [facility] URINE AND STOOL UA Leuk Est Negative (09/11/17 7:20 PM) Negative 09/12/2017 [facility] URINE AND STOOL UA Nitrite Negative (09/11/17 7:20 PM) Negative 09/12/2017 [facility] URINE AND STOOL UA Urobilinogen 1.0 0.1 - 1.0 09/12/2017 [facility] URINE AND STOOL UA WBC 6-10 /HPF None Seen /HPF 09/12/2017 [facility] URINE AND STOOL UA Sq Epi Moderate /LPF Few /LPF 09/12/2017 [facility] URINE AND STOOL UA Bacteria None Seen (09/11/17 7:20 PM) None Seen 09/12/2017 [facility] URINE AND STOOL UA RBC 0-2 /HPF 0 - 2 09/12/2017 [facility] URINE AND STOOL UA Mucus Many /LPF None Seen /LPF 09/12/2017 [facility] URINE AND STOOL Micro? Performed (09/11/17 7:20 PM) 09/12/2017 [facility] Pathology Reports No Data Provided for This Section Diagnostic Reports Report Value Date Source ED Abdomen/Pelvis IV contrast only CT Clinical Indication: - attention to spine and pelvis. recent spine surgery, pelvic pain bilateral; Comparison: 09/11/2017 CT abdomen pelvis, ultrasound pelvis 09/11/2017 TECHNIQUE: Helical imaging was performed diaphragm through the symphysis with multiplanar reformations obtained. IV CONTRAST: 100cc Omnipaque [address] imaging performed at this location utilizes radiation dose optimization techniques which include one or more of the following: -Automated exposure control -Adjustment of the mA and/or kV according to patient size -Use of iterative reconstruction technique CT Radiation Dose DLP 499 mGy-cm FINDINGS: LOWER CHEST: The lung bases are clear. SOLID ORGANS: The liver, gallbladder, spleen, pancreas, adrenal glands and right kidney are normal. 3 mm and 2 mm nonobstructive left renal calculi are present. No hydronephrosis. No ureteral dilatation or calculus. BOWEL: No acute findings. Previous gastroplasty. Appendix not visualized although no pericecal inflammation or pathologic fluid. PERITONEUM: No free intraperitoneal air. Small free fluid in the cul-de-sac. No surrounding inflammation or enhancement. No other pathologic fluid or gas within the abdomen. PELVIS: Prior hysterectomy. Small free fluid in the cul-de-sac. 3 x 4 x 6 cm, well demarcated fluid collection left adnexa is unchanged from 09/11/2017. The urinary bladder is normal. MUSCULOSKELETAL: L2 laminectomy. No pathologic paraspinous fluid collections are abnormal gas. Spinal drain catheter has backed out of the lumbar thecal sac and now terminates within the subcutaneous fat posterior to L2. No pathologic fluid or inflammation is noted along the course of this retained catheter. IMPRESSION: Interval L2 laminectomy. No paraspinous fluid collection or abscess. Previously noted spinal drainage catheter has backed out, and now terminates in the body wall fat overlying the L2. There is no pathologic fluid or inflammation surrounding this retained tubing. Prior hysterectomy. Trace free fluid within the pelvic peritoneum. 3 x 4 x 6 cm well-demarcated left adnexal fluid or cyst is stable from 09/11/2017 CT and ultrasound. Nonobstructive left nephrolithiasis. SL: LEE 07/09/2018 [facility] Spine lumbar series DX Procedure: Lumbar Spine Radiographs. Clinical Indication: Low back pain for 3 days, shunt removal, previous hysterectomy. Comparison: None. FINDINGS: The 6 views of the lumbar spine show degenerative change most pronounced at L5- S1 including narrowing of the intervertebral disc spaces, marginal osteophyte formation and facet joint hypertrophy. No acute displaced fracture or spondylolisthesis is observed. There is tubing projected overlying the right flank and right mid abdomen. There is an anastomotic site in the epigastric region. IMPRESSION: 1. Degenerative change. [id number] 07/09/2018 [facility] Abdomen 2 views DX EXAM: XR ABDOMEN 1 VIEW DATE: 11/01/2017 2:49 AM RESOLUTION REP INDICATION: - no BM for 2 weeks ADDITIONAL INFORMATION: None. COMPARISON: CT abdomen pelvis dated 09/11/2017. TECHNIQUE: Upright and supine views of the abdomen and pelvis with a total of 4 images. FINDINGS: Lines, tubes and hardware: Tip of the epidural pain pump projects at the level of L3. Lower thorax: Unremarkable where visualized. Abdomen and bowel: Normal bowel loop caliber. Large amount of fecal material is seen throughout the colon with a relative lack of stool in the rectum. No appreciable free air. Calcifications: No abnormal calcifications found. Bones and soft tissues: No acute abnormality. IMPRESSION: 1. Large colonic fecal burden suggests constipation. 2. Nonobstructive bowel gas pattern. UT SECTION: ER 11/01/2017 [facility] Pelvis Limited US US PELVIS History: Abnormality seen on CT Comments: Transabdominal pelvic ultrasound performed. Transvaginal pelvic ultrasound was not performed. Compared to abdomen CT performed on the same date As per provided history, patient had hysterectomy and bilateral salpingo-oophorectomy. Uterus is not seen. Normal bilateral ovaries are not seen. There is an approximately 4.6 x 4.5 x 3.9 cm cystic structure in the left pelvis corresponding to the CT abnormality. This may be a peritoneal inclusion cyst or paraovarian cyst. Impression: Approximately 4.6 cm cystic structure in the left pelvis corresponding to the CT abnormality, may be a peritoneal inclusion cyst or paraovarian cyst. Normal ovaries are not seen. 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 Comparison: None. TECHNIQUE: Noncontrast helical imaging was performed from the lung bases through the symphysis as a renal stone protocol. Sagittal and coronal reformations were obtained. CT imaging was performed with exposure control parameters to reduce radiation dose. CT Radiation Dose DLP: 796.16 mGy-cm FINDINGS: This examination is limited for the evaluation of solid organs and vascular structures due to lack of intravenous contrast, which is standard for urinary calculus assessment CT. There is trace right pleural effusion. Trace pericardial fluid is also noted. The liver is homogeneous in appearance. There is no intrahepatic biliary dilatation. The gallbladder is unremarkable. The spleen is normal in size. Postsurgical changes are noted in the left upper quadrant. The bilateral adrenal glands and pancreas are unremarkable. There is no abdominal aortic aneurysm. There is a punctate nonobstructing calculus in the upper pole of left kidney. There is a 4 mm nonobstructing calculus in the lower pole of right kidney. There is no bowel wall thickening or obstruction. There is colonic diverticulosis without CT evidence of diverticulitis. There is a small ascites. The patient is status post hysterectomy. There is a cystic lesion measuring approximately 6.4 x 4.0 x 3.8 cm in the left adnexa. The urinary bladder is unremarkable. Degenerative changes are noted in the spine. A shunt catheter is noted with its tips in the lumbar spine and right upper quadrant posterior to the liver. IMPRESSION: Small ascites. No hydronephrosis in either kidney. 4 mm nonobstructing calculus in the lower pole of right kidney. Punctate nonobstructing calculus in the upper pole of left kidney. Cystic lesion measuring 6.4 x 4.0 x 3.8 cm in the left adnexa. Ultrasound examination is recommended for further evaluation. SL: JANKI 09/11/2017 [facility] Consultation Notes No Data Provided for This Section Discharge Summaries No Data Provided for This Section History and Physicals No Data Provided for This Section Vital Signs Vital Sign Value Date Comments Source Systolic (mm Hg) 137 11/02/2018 [facility] Diastolic (mm Hg) 70 11/02/2018 [facility] Respitory Rate 15 11/02/2018 [facility] Systolic (mm Hg) 119 11/02/2018 [facility] Diastolic (mm Hg) 58 11/02/2018 [facility] Respitory Rate 14 11/02/2018 [facility] Respitory Rate 14 11/02/2018 [facility] Systolic (mm Hg) 129 11/02/2018 [facility] Diastolic (mm Hg) 74 11/02/2018 [facility] Heart Rate 48 11/02/2018 [facility] Weight 75.455 11/01/2018 [facility] BMI Calculated 26.05 11/01/2018 [facility] Height 170.18 cm 11/01/2018 [facility] BMI Calculated 26.05 10/23/2018 [facility] Weight 75.455 10/23/2018 [facility] Height 170.18 cm 10/23/2018 [facility] Systolic (mm Hg) 166 10/23/2018 [facility] Diastolic (mm Hg) 79 10/23/2018 [facility] Temperature Oral (F) 98.1 F 10/23/2018 [facility] Heart Rate 52 10/23/2018 [facility] Respitory Rate 18 10/23/2018 [facility] Systolic (mm Hg) 150 07/10/2018 [facility] Diastolic (mm Hg) 77 07/10/2018 [facility] Temperature Oral (F) 97.1 F 07/10/2018 [facility] Heart Rate 56 07/10/2018 [facility] Respitory Rate 17 07/10/2018 [facility] Respitory Rate 17 07/09/2018 [facility] Systolic (mm Hg) 146 07/09/2018 [facility] Diastolic (mm Hg) 81 07/09/2018 [facility] Heart Rate 58 07/09/2018 [facility] Heart Rate 51 07/09/2018 [facility] Respitory Rate 20 07/09/2018 [facility] Temperature Oral (F) 97.4 F 07/09/2018 [facility] Height 170.18 cm 07/09/2018 [facility] Weight 79.545 07/09/2018 [facility] BMI Calculated 27.47 07/09/2018 [facility] Systolic (mm Hg) 153 07/09/2018 [facility] Diastolic (mm Hg) 68 07/09/2018 [facility] Systolic (mm Hg) 128 11/01/2017 [facility] Diastolic (mm Hg) 79 11/01/2017 [facility] Respitory Rate 20 11/01/2017 [facility] Temperature Oral (F) 98 F 11/01/2017 [facility] Respitory Rate 20 11/01/2017 [facility] Systolic (mm Hg) 140 11/01/2017 [facility] Diastolic (mm Hg) 86 11/01/2017 [facility] Heart Rate 70 11/01/2017 [facility] Temperature Oral (F) 97.3 F 11/01/2017 [facility] Temperature Oral (F) 97.8 F 11/01/2017 [facility] Weight 90.909 11/01/2017 [facility] Heart Rate 56 11/01/2017 [facility] Systolic (mm Hg) 137 11/01/2017 [facility] Diastolic (mm Hg) 85 11/01/2017 [facility] Respitory Rate 18 11/01/2017 [facility] Temperature Oral (F) 96.3 F 09/12/2017 [facility] Heart Rate 54 09/12/2017 [facility] Respitory Rate 18 09/12/2017 [facility] Systolic (mm Hg) 125 09/12/2017 [facility] Diastolic (mm Hg) 67 09/12/2017 [facility] Respitory Rate 18 09/12/2017 [facility] Systolic (mm Hg) 134 09/12/2017 [facility] Diastolic (mm Hg) 80 09/12/2017 [facility] Temperature Oral (F) 97.3 F 09/12/2017 [facility] Heart Rate 51 09/12/2017 [facility] Temperature Oral (F) 97.2 F 09/12/2017 [facility] Height 170.18 cm 09/12/2017 [facility] BMI Calculated 32.49 09/12/2017 [facility] Weight 94.091 09/12/2017 [facility] Systolic (mm Hg) 133 09/12/2017 [facility] Diastolic (mm Hg) 65 09/12/2017 [facility] Heart Rate 51 09/12/2017 [facility] Respitory Rate 18 09/12/2017 [facility] Encounters Location Location Details Encounter Type Encounter Number Reason For Visit Attending Provider ADM Date DC Date Status Source [facility] Emergency [id number] Michelle Tsai 09/12/2017 09/12/2017 [facility] Emergency [id number] Deisy José 10/31/2017 11/01/2017 [facility] Emergency [id number] Pooja Dasilva 07/09/2018 07/10/2018 [facility] Emergency [id number] Ian Deleon 10/23/2018 10/23/2018 [facility] Day Surgery [id number] Eduardo CalderonShelbie 11/02/2018 11/03/2018 [facility] Procedures Procedure Code Date Perfomer Comments Source Bypass of stomach<sup>1</sup> [id number] gastric sleeve [facility] Carpal tunnel release [id number] [facility] Hysterectomy [id number] [facility] Oophorectomy [id number] [facility] Procedure<sup>2</sup> [id number] plantar facis and heel spur [facility] Removal - procedure<sup>3</sup> [id number] of rib [facility] Shunt construction<sup>4, 5</sup> [id number] x3 blood patches donefpor pseudocerebri [facility] Bypass of stomach [id number] [facility] Removal - procedure<sup>1</sup> [id number] of rib [facility] Shunt construction<sup>2</sup> [id number] fpor pseudocerebri [facility] Bypass of stomach [id number] [facility] Carpal tunnel release [id number] [facility] Hysterectomy [id number] [facility] Removal - procedure<sup>1</sup> [id number] of rib [facility] Shunt construction<sup>2</sup> [id number] fpor pseudocerebri [facility] Bypass of stomach<sup>1</sup> [id number] gastric sleeve [facility] Oophorectomy [id number] [facility] Procedure<sup>2</sup> [id number] plantar facis and heel spur [facility] Removal - procedure<sup>3</sup> [id number] of rib [facility] Shunt construction<sup>4, 5</sup> [id number] x3 blood patches donefpor pseudocerebri [facility] Assessment and Plan No Data Provided for This Section Plan of Care No Data Provided for This Section Social History Social History Date Source Social History TypeResponse Substance Abuse Use: None. Alcohol Current, Frequency: 1-2 times per month. Smoking Status Never smoker; Exposure to Tobacco Smoke None; Cigarette Smoking Last 365 Days No; Reg Smoking Cessation Counseling No entered on: 11/01/18 11/01/2018 [facility] Social History TypeResponse Substance Abuse Use: None. Alcohol Current, Frequency: 1-2 times per month. Smoking Status Never smoker; Exposure to Tobacco Smoke None; Cigarette Smoking Last 365 Days No; Reg Smoking Cessation Counseling No entered on: 11/01/18 11/01/2018 [facility] Family History No Data Provided for This Section Advance Directives No Data Provided for This Section Functional Status No Data Provided for This Section
--- OUTSIDE RECORDS SUMMARY | 2019-06-20 14:16 | XMS REPORT | Summary of Care ---
Author Author [facility] Organization [facility] Address Unknown Phone Unavailable Encounter HQ [place]) [phone] Date(s): 07/09/18 - 07/09/18 [facility] [id number] [place] [place], [place] [address]- [phone] Encounter Diagnosis Acute low back pain (Discharge Diagnosis) - 07/09/18 Acute pelvic pain (Discharge Diagnosis) - 07/09/18 Low back pain (Final) - 07/13/18 Pelvic and perineal pain (Final) - Other specified noninflammatory disorders of vagina (Final) - Essential (primary) hypertension (Final) - Acquired absence of both cervix and uterus (Final) - Personal history of urinary calculi (Final) - Other specified postprocedural states (Final) - Discharge Disposition: Home or Self Care Attending Physician: Pooja Dasilva MD Vital Signs 1 2 3 Most recent to oldest [Reference Range]: 170.18 cm (07/09/18 2:50 PM) Height 97.1 DegF (07/09/18 7:05 PM) 97.4 DegF (07/09/18 2:50 PM) Temperature Oral [96.4-99.1 DegF] 150/77 mmHg *HI* (07/09/18 7:05 PM) 146/81 mmHg *HI* (07/09/18 6:23 PM) 153/68 mmHg *HI* (07/09/18 2:50 PM) Blood Pressure [90-140/60-90 mmHg] 17 BRMIN (07/09/18 7:05 PM) 17 BRMIN (07/09/18 6:23 PM) 20 BRMIN (07/09/18 2:50 PM) Respiratory Rate [14-20 BRMIN] 56 bpm *LOW* (07/09/18 7:05 PM) 58 bpm *LOW* (07/09/18 6:23 PM) 51 bpm *LOW* (07/09/18 2:50 PM) Peripheral Pulse Rate [60-100 bpm] 79.545 kg (07/09/18 2:50 PM) Weight 27.47 m2 (07/09/18 2:50 PM) Body Mass Index Problem List Condition Effective Dates Status Health Status Informant CSF leak(Confirmed) Resolved Depression(Confirmed Active ) Hypertension(Confirm Active ed) Allergies, Adverse Reactions, Alerts Substance Reaction Severity Status NKDA Active Medications ketOROLAC 15 mg/mL injectable solution 15 mg, 0.5 mL, Route: IVP, Drug form: INJ, ONCE, Dosing Weight 79.545, kg, Prior ity: STAT, Start date: 07/09/18 15:17:00 CDT, Stop date: 07/09/18 15:17:00 CDT Notes: (Same as:Toradol) IV bolus must be given >15 seconds. Give IM administration slowly and deeply into the muscle.Not for use > 4 days MEDICATION WASTE Product Size: 30 mgProduct Wasted: ___ mg Start Date: 07/09/18 Stop Date: 07/09/18 Status: Completed morphine Sulfate 4 mg, 1 mL, Route: IVP, Drug form: SOLN, ONCE, Dosing Weight 79.545, kg, Priorit y: STAT, Start date: 07/09/18 16:19:00 CDT, Stop date: 07/09/18 16:19:00 CDT Notes: (Same as:MORPhine Sulfate) Start Date: 07/09/18 Stop Date: 07/09/18 Status: Completed morphine Sulfate 4 mg, 1 mL, Route: IVP, Drug form: SOLN, ONCE, Dosing Weight 79.545, kg, Priorit y: STAT, Start date: 07/09/18 18:03:00 CDT, Stop date: 07/09/18 18:03:00 CDT Notes: (Same as:MORPhine Sulfate) Start Date: 07/09/18 Stop Date: 07/09/18 Status: Discontinued morphine Sulfate 4 mg, Route: IVP, ONCE, Dosing Weight 79.545, kg, Priority: STAT, Start date: 18:23:00 CDT, Stop date: 07/09/18 18:23:00 CDT Start Date: 07/09/18 Stop Date: 07/09/18 Status: Completed morphine Sulfate 4 mg, 1 mL, Route: IVP, Drug form: SOLN, ONCE, Dosing Weight 79.545, kg, Priorit y: STAT, Start date: 07/09/18 15:17:00 CDT, Stop date: 07/09/18 15:17:00 CDT Notes: (Same as:MORPhine Sulfate) Start Date: 07/09/18 Stop Date: 07/09/18 Status: Completed [place] 5/325 oral tablet 1 tab, Route: PO, Drug Form: TAB, Dosing Weight 79.545, kg, ONCE, STAT, Start da te: 07/09/18 16:19:00 CDT, Stop date: 07/09/18 16:19:00 CDT Notes: (Same as: [place] 325/5) Do not exceed 4gm/day of acetaminophen. Start Date: 07/09/18 Stop Date: 07/09/18 Status: Completed NS (Bolus) IV 1,000 mL, 1,000 ml/hr, Infuse Over: 1 hr, Route: IV, 1,000, Drug form: INJ, ONCE , Priority: STAT, Dosing Weight 79.545 kg, Start date: 07/09/18 16:19:00 CDT, St op date: 07/09/18 16:19:00 CDT Start Date: 07/09/18 Stop Date: 07/09/18 Status: Completed Tylenol 650 mg, 2 tab, Route: PO, Drug form: TAB, ONCE, Dosing Weight 79.545, kg, Priori ty: STAT, Start date: 07/09/18 15:17:00 CDT, Stop date: 07/09/18 15:17:00 CDT Notes: Do not exceed 4 gm/day. (Same as: Tylenol) Start Date: 07/09/18 Stop Date: 07/09/18 Status: Completed Tylenol with Codeine #3 oral tablet 1 tab, PO, BID, PRN Pain, Do not drive while taking this medication, X 4 day, # 8 tab, 0 Refill(s) Start Date: 07/09/18 Stop Date: 07/13/18 Status: Completed Valium 5 mg, 1 tab, Route: PO, Drug form: TAB, ONCE, Dosing Weight 79.545, kg, Priority : STAT, Start date: 07/09/18 15:17:00 CDT, Stop date: 07/09/18 15:17:00 CDT Notes: (Same as: Valium) Start Date: 07/09/18 Stop Date: 07/09/18 Status: Completed Results ELECTROLYTES Most recent to 1 oldest [Reference Range]: Sodium Lvl [135-145 143 mEq/L mEq/L] (07/09/18 3:42 PM) Potassium Lvl 3.4 mEq/L [3.5-5.1 mEq/L] *LOW* (07/09/18 3:42 PM) Chloride Lvl [95-109 104 mEq/L mEq/L] (07/09/18 3:42 PM) CO2 [24-32 mEq/L] 32 mEq/L (07/09/18 3:42 PM) AGAP [10.0-20.0 10.4 mEq/L mEq/L] (07/09/18 3:42 PM) CHEM PANEL Most recent to 1 oldest [Reference Range]: Creatinine Lvl 0.77 mg/dL [0.50-1.40 mg/dL] (07/09/18 3:42 PM) eGFR 88 mL/min/1.73m2 1 *NA* (07/09/18 3:42 PM) BUN [7-22 mg/dL] 12 mg/dL (07/09/18 3:42 PM) Glucose Lvl [70-99 81 mg/dL mg/dL] (07/09/18 3:42 PM) Calcium Lvl 8.6 mg/dL [8.5-10.5 mg/dL] (07/09/18 3:42 PM) 1Result Comment: The eGFR is calculated [...] mul tiplied by the estimated BMI. URINE CHEM Most recent to 1 oldest [Reference Range]: U Preg [Negative] Negative (07/09/18 3:42 PM) URINE AND STOOL Most recent to 1 oldest [Reference Range]: UA Turbidity [Clear] Clear (07/09/18 3:42 PM) UA Color [Yellow] Alana *ABN* (07/09/18 3:42 PM) UA pH [5.0-8.0] 6.0 (07/09/18 3:42 PM) UA Spec Grav >=1.030 [<=1.030] *ABN* (07/09/18 3:42 PM) UA Glucose Negative [Negative] (07/09/18 3:42 PM) UA Blood [Negative] Negative (07/09/18 3:42 PM) UA Ketones Negative [Negative] *NA* (07/09/18 3:42 PM) UA Protein Negative [Negative] (07/09/18 3:42 PM) UA Urobilinogen 0.2 EU/dL [0.1-1.0 EU/dL] (07/09/18 3:42 PM) UA Bili [Negative] Negative *NA* (07/09/18 3:42 PM) UA Leuk Est Negative [Negative] (07/09/18 3:42 PM) UA Nitrite Negative [Negative] (07/09/18 3:42 PM) UA WBC [None Seen 3-5 /HPF /HPF] (07/09/18 3:42 PM) UA RBC [0-2 /HPF] 0-2 /HPF (07/09/18 3:42 PM) UA Bacteria [None Many /HPF Seen /HPF] (07/09/18 3:42 PM) UA Sq Epi [Few /LPF] Moderate /LPF *ABN* (07/09/18 3:42 PM) UA Mucus [None Seen Many /LPF /LPF] *ABN* (07/09/18 3:42 PM) HEMATOLOGY Most recent to 1 oldest [Reference Range]: WBC [3.7-10.4 K/CMM] 6.0 K/CMM (07/09/18 3:42 PM) RBC [4.20-5.40 4.15 M/CMM M/CMM] *LOW* (07/09/18 3:42 PM) Hgb [12.0-16.0 g/dL] 13.0 g/dL (07/09/18 3:42 PM) Hct [36.0-48.0 %] 38.9 % (07/09/18 3:42 PM) MCV [80.0-98.0 fL] 93.8 fL (07/09/18 3:42 PM) MCH [27.0-31.0 pg] 31.4 pg *HI* (07/09/18 3:42 PM) MCHC [32.0-36.0 33.5 g/dL g/dL] (07/09/18 3:42 PM) RDW [11.5-14.5 %] 11.6 % (07/09/18 3:42 PM) MPV [7.4-10.4 fL] 9.7 fL (07/09/18 3:42 PM) Platelet [133-450 164 K/CMM K/CMM] (07/09/18 3:42 PM) Segs [45.0-75.0 %] 48.6 % (07/09/18 3:42 PM) Lymphocytes 42.6 % [20.0-40.0 %] *HI* (07/09/18 3:42 PM) Monocytes [2.0-12.0 7.4 % %] (07/09/18 3:42 PM) Eosinophils [0.0-4.0 1.1 % %] (07/09/18 3:42 PM) Basophils [0.0-1.0 0.3 % %] (07/09/18 3:42 PM) Neutrophils # 2.9 K/CMM [1.5-8.1 K/CMM] (07/09/18 3:42 PM) Lymphocytes # 2.6 K/CMM [1.0-5.5 K/CMM] (07/09/18 3:42 PM) Monocytes # [0.0-0.8 0.4 K/CMM K/CMM] (07/09/18 3:42 PM) Eosinophils # 0.1 K/CMM [0.0-0.5 K/CMM] (07/09/18 3:42 PM) Immunizations No data available for this [...]
--- OUTSIDE RECORDS SUMMARY | 2019-06-20 14:16 | XMS REPORT ---
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 Allergies, Adverse Reactions, Alerts Allergy Name Allergy Type Status Severity Reaction(s) Onset Date Inactive Date Treating Clinician Comments No Known Allergies DA Active U 2016-09-02 00:00:00 Medications This patient has no known medications. Results Test Description Test Time Test Comments Text Results Atomic Results Result Comments ABDOMEN-1VIEW (KUB) [place] [address] Patient Name: NICOLAS MIMS MR #: [id number] : 1960 Age/Sex: 57/F Req #: [id number] Adm Physician: Ordered by: CHRISTIAN KELSEY MD Report #: [id number] Location: [facility] Room/Bed: Procedure: [id number] DX/ABDOMEN-1VIEW (KUB) Exam Date: 11/15/17 Exam Time: 1335 REPORT STATUS: Signed PROCEDURE: X-RAY ABDOMEN - KUB COMPARISON: None. INDICATIONS: RENAL STONE FINDINGS: There is a non-obstructed bowel-gas pattern. There are no calcifications projected over the renal shadows, expected course of the ureters or bladder. There are no acute osseous abnormalities. Catheter projects over the lower lumbar spine and right mid abdomen. Phleboliths are present in the pelvis. The lung bases are clear. CONCLUSION: No acute radiographic abnormality. Dictated by: Payton Day M.D. on 11/15/2017 at 14:27 Electronically approved by: Payton Day M.D. on 11/15/2017 at 14:27 Dictated By: PAYTON DAY MD [id number] Transcribed By: ARGELIA on 11/15/17 1427 COPY TO: CHRISTIAN KELSEY MD
[2019-06-20] MEDS ORDERED: GABAPENTIN400 MG PO (14:39)
--- NOTE | 2019-06-20 15:28 | Diagnostic Imaging Report ---
CT [facility] HISTORY: Trauma COMPARISON: None. TECHNIQUE: Noncontrast axial scans were obtained from skull base to the vertex. Coronal and sagittal reconstructions obtained from the axial data. One or more of the following dose reduction techniques were used: Automated exposure control, adjustment of the mA and/or kV according to patient size, and/or utilization of iterative reconstruction technique. DISCUSSION: Scalp/Skull: Unremarkable. Brain sulci: Appropriate for patient's age. Ventricles: Normal in size and configuration. No hydrocephalus. Extra-axial spaces: No masses or fluid collections. Mild carotid siphon calcifications are present. Parenchyma: No abnormal densities. No mass, hemorrhage, or large vascular territory acute infarct. Dural sinuses: No abnormal densities. Sellar/Suprasellar region: Intact. Skull base: Intact. Incidental findings: Partially visualized, mild deformity of the left maxillary frontal process is age indeterminate. IMPRESSION: No acute intracranial abnormalities. Signed by: Dr. Emmanuel Luevano M.D. on 06/20/2019 3:24 PM
--- NOTE | 2019-06-20 15:55 | Diagnostic Imaging Report ---
CT C-SPINE W/O - HOPD HISTORY: Trauma, neck pain COMPARISON: Concurrent head CT TECHNIQUE: CT of the cervical spine without contrast. Sagittal and coronal reformations were created. One or more of the following dose reduction techniques were used: Automated exposure control, adjustment of the mA and/or kV according to patient size, and/or utilization of iterative reconstruction technique. FINDINGS: Cervical lordosis is straightened. There is no scoliosis or subluxation. No fractures, compression deformity, or destructive osseous lesions are seen. The craniocervical junction is intact. No gross spinal canal masses are seen. The paravertebral and paraspinal soft tissues are unremarkable. Mild multilevel spondylosis is most prominent at C6-C7. The little tonsils are mildly prominent. IMPRESSION: 1. No acute osseous abnormalities. 2. Mild multilevel spondylosis, most prominent at C6-C7. Signed by: Dr. Emmanuel Luevano M.D. on 06/20/2019 3:52 PM
== END 2019-06-20 16:00 | disposition home or self-care (01) ==
LOC: FSED 14:12
DX: G89.11 Acute pain due to trauma (principal); S00.83XA Contusion of other part of head, initial encounter; S16.1XXA Strain of muscle, fascia and tendon at neck level, initial encounter; M47.812 Spondylosis without myelopathy or radiculopathy, cervical region; V43.53XA Car driver injured in collision with pick-up truck in traffic accident, initial encounter; Y92.488 Other paved roadways as the place of occurrence of the external cause; I10 Essential (primary) hypertension; E78.5 Hyperlipidemia, unspecified; G89.29 Other chronic pain; Z98.84 Bariatric surgery status
CPT/HCPCS: 70450; 72125; 99283